=== PATIENT | female | born 1940 | race Caucasian/White ===

== ENCOUNTER 2016-12-03 07:56 | Day surgery (SDC) | payer OTHER, MEDICARE ==
[2016-12-03 08:16] LABS: MCH 31.3 pg (25.7-33.7); MCHC 33.3 g/dl (32.0-36.0); MEAN CELL VOLUME 94.2 fl (80-96); MEAN PLT VOLUME 7.3 fl (7.5-11.1); PLATELET COUNT 209 K/MM3 (134-434); RDW 14.5 % (11.6-15.6); WHITE BLOOD COUNT 6.4 K/mm3 (4.0-10.0)
[2016-12-03 08:32] VITALS: BMI 32.9
[2016-12-03 08:49] LABS: ALBUMIN 3.6 g/dl (3.4-5.0); ALK PHOS 64 U/L (45-117); ANION GAP 7 (8-16); BILIRUBIN,TOTAL 0.5 mg/dL (0.2-1.0); CALCIUM 9.2 mg/dL (8.5-10.1); CO2 30 mmol/L (21-32); CREATININE 0.8 mg/dL (0.55-1.02); GLUCOSE,RANDOM 89 mg/dL (74-106); SGOT/AST 16 U/L (15-37); SGPT/ALT 20 U/L (12-78); TOT PROT 6.9 g/dl (6.4-8.2)
[2016-12-03] MEDS ORDERED: ONDANSETRON 4 MG/2 ML VIAL IVPUSH PRN (10:53)
[2016-12-03] MEDS ORDERED: PROMETHAZINE HCL 25 MG/1 ML VIAL IVPUSH PRN (10:53)
[2016-12-03] MEDS ORDERED: oxyCODONE HCL 5 MG TABLET PO PRN (10:53)
--- NOTE | 2016-12-03 10:53 | HP ---
Past Medical History - Primary Care Physician PCP:: Víctor Marquez - Admission Chief Complaint: 76 yo female with postmenopausal bleeding History of Present Illness: Postmenopausal bleeding daily for several months. 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: No: Alzheimer's, CVA, Dementia, Migraine, Multiple Sclerosis, Peripheral Neuropathy, Parkinson's, Seizure, Syncope, TIA, Vertigo, Other Cardiovascular: Yes: HTN, Murmur (MVP) Pulmonary: No: Asthma, Bronchitis, Cancer, COPD, O2 Dependent, Pneumonia, Previously Intubated, Pulmonary Embolus, Pulmonary Fibrosis, Sleep Apnea, Other Gastrointestinal: No: Ascites, Cancer, Constipation, Crohn's Disease, Diverticulitis, Diverticulosis, Esophageal Varices, Gastritis, GERD, GI Bleed, Hemorrhoids, Hiatal Hernia, Inflamatory Bowel Disease, Irritable Bowel Disease, Pancreatitis, Peptic Ulcer Disease, Ulcerative Colitis, Other Hepatobiliary: No: Cirrhosis, Cholelithiasis, Cholecystitis, Choledocholithiasis , Hepatitis A, Hepatitis B, Hepatitis C, Other Renal/: No: Renal Failure, Renal Inusuff, BPH, Cancer, Hematuria, Hemodialysis , Neurogenic Bladder, Renal Calculi, UTI, Other Reproductive: No: Ectopic , Endometriosis, Fibroids, PID, Polycystic Ovary Syndrome, Postmenopausal, Other ...Para: 3 Heme/Onc: No: Anemia, B12 Deficiency, Bleeding Disorder, Cancer, Current Chemotherapy, Current Radiation Therapy, Hemochromatosis, Hypercoaguable State, Myeloproliferative Synd, Sickle Cell Disease, Sickle Cell Trait, Thrombocytopenia, Other Infectious Disease: No: AIDS, C-Diff, Herpes Zoster, HIV, MRSA, STD's, Tuberculosis, VREF, Other Psych: No: Addictions, Anxiety, Bipolar, Depression, Panic, Psychosis, Schizophrenia, Other Musculoskeletal: Yes: Chronic low back pain Rheumatology: No: Fibromyalgia, Gout, Lupus, Rheumatoid Arthritis, Sarcoidosis, Vasculitis, Other ENT: No: Allergic Rhinitis, Sinusitis, Other Endocrine: No: Swift's Disease, Turner's Disease, Diabetes Insipidus, Diabetes Mellitus, Hyperparathyroidism, Hyperthyroidism, Hypothyroidism, Osteopenia, SIADH, Other Dermatology: No: Basal Cell, Cellulitis, Eczema, Melanoma, Psoriasis, Squamous Cell, Other - Past Surgical History Hx Myomectomy: No Hx Transabdominal Cerclage: No - Smoking History Smoking history: Never smoked Have you smoked in the past 12 months: No Aproximately how many cigarettes per day: 0 If you are a former smoker, when did you quit?: 1989 - Alcohol/Substance Use Hx Alcohol Use: Yes (SOCIALLY) History of Substance Use: reports: None - Social History Usual Living Arrangement: Yes: With Spouse ADL: Independent Occupation: Retired History of Recent Travel: No Home Medications - Allergies Allergies/Adverse Reactions: Allergies Allergy/AdvReac Type Severity Reaction Status Date / Time minocycline HCl Allergy Mild Verified 12/03/16 10:54 [From Minocin] Shellfish Allergy Mild GI UPSET Verified 10/11/15 09:06 levofloxacin [From Levaquin] AdvReac Severe Nausea Verified 10/11/15 09:06 - Home Medications Home Medications: Ambulatory Orders Metoprolol Tartrate [Lopressor -] 75 mg PO DAILY 02/03/15 Ranitidine HCl [Zantac] 150 mg PO BID 02/03/15 Acetaminophen [Tylenol -] 500 mg PO Q6H PRN 12/03/16 Naproxen Sodium [Aleve] 220 mg PO BID PRN 12/03/16 Family Disease History - Family Disease History Family History: Denies Review of Systems - Review of Systems Constitutional: reports: No Symptoms Eyes: reports: No Symptoms HENT: reports: No Symptoms Neck: reports: No Symptoms Cardiovascular: reports: No Symptoms Respiratory: reports: No Symptoms Gastrointestinal: reports: No Symptoms Genitourinary: reports: Vaginal Bleeding Breasts: reports: No Symptoms Reported Musculoskeletal: reports: No Symptoms Integumentary: reports: No Symptoms Neurological: reports: No Symptoms Endocrine: reports: No Symptoms Hematology/Lymphatic: reports: No Symptoms Psychiatric: reports: No Symptoms Pain Intensity: 0 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 Vital Signs: Vital Signs Temperature 97.8 F 12/03/16 08:54 Pulse Rate 58 L 12/03/16 08:54 Respiratory Rate 18 12/03/16 08:54 Blood Pressure 133/51 12/03/16 08:54 O2 Sat by Pulse Oximetry (%) 98 12/03/16 08:54 Constitutional: Yes: Well Nourished, No Distress, Calm Eyes: Yes: WNL, Conjunctiva Clear HENT: Yes: WNL, Atraumatic, Normocephalic Neck: Yes: WNL, Supple, Trachea Midline Cardiovascular: Yes: WNL, Regular Rate and Rhythm Respiratory: Yes: WNL, Regular, CTA Bilaterally Gastrointestinal: Yes: WNL, Normal Bowel Sounds, Soft ...Rectal Exam: Yes: WNL Renal/: Yes: WNL Pelvis: Yes: WNL External Genitalia: Yes: Normal Internal Exam Deferred: No Vaginal Exam: Yes: Bleeding Cervix: Yes: Normal Uterus: Yes: Normal, Freely Moveable Musculoskeletal: Yes: WNL Extremities: Yes: WNL Edema: No Integumentary: Yes: WNL Neurological: Yes: WNL, Alert, Oriented ...Motor Strength: WNL Psychiatric: Yes: WNL, Alert, Oriented Labs: CBC, BMP 12/03/16 08:06 12/03/16 08:06 Assessment/Plan 76 yo P3 with postmenopausal bleeding, admitted for hysteroscopy, D&C. Risks, benefits, alternatives of suregry were discussed with the patient. Risks of infection, bleeding, perforation, scarring, pain, etc. were explained. The pt verbalized her understanding and requested to proceed.
[2016-12-03] MEDS ORDERED: LACTATED RINGERS SOLUTION 1,000 ML IV SCH (11:00)
--- NOTE | 2016-12-03 11:00 | EKG ---
Test Reason : Blood Pressure : / mmHG Vent. Rate : 056 BPM Atrial Rate : 056 BPM P-R Int : 152 ms QRS Dur : 078 ms QT Int : 424 ms P-R-T Axes : 063 057 025 degrees QTc Int : 409 ms SINUS BRADYCARDIA T WAVE ABNORMALITY, CONSIDER ANTERIOR ISCHEMIA ABNORMAL ECG WHEN COMPARED WITH ECG OF 25-OCT-2012 12:53, NO SIGNIFICANT CHANGE WAS FOUND Confirmed by DEVON SHANKS MD ([id number]) on 12/03/2016 11:00:14 AM Referred By: MOISES Confirmed By:DEVON SHANKS MD
[2016-12-03] MEDS ORDERED: SUCCINYLCHOLINE CHLORIDE 200 MG/10 ML VIAL ONE (11:05)
[2016-12-03] MEDS ORDERED: PROPOFOL 20 ML ONE (11:05)
[2016-12-03] MEDS ORDERED: IBUPROFEN 600 MG TABLET (FP) PO PRN (12:18)
[2016-12-03] MEDS ORDERED: ACETAMINOPHEN 325 MG TABLET (FP) PO PRN (12:18)
--- NOTE | 2016-12-03 12:21 | OP ---
Operative Note - Note: Operative Date: 12/03/16 Pre-Operative Diagnosis: Postmenopausal bleeding Operation: Hysteroscopy, D&C Findings: Small anteverted uterus. Multiple endometrial polyps. Post-Operative Diagnosis: Same as Pre-op Surgeon: Víctor Marquez Anesthesiologist/WEB SPECIALIST: Rehana Henderson MD Anesthesia: General Specimens Removed: Uterine polyps, endometrial curettings Estimated Blood Loss (mls): 10 Blood Volume Replaced (mls): 0 Fluid Volume Replaced (mls): 500 Operative Report Dictated: Yes
[2016-12-03 12:55] VITALS: TEMP 97.4
[2016-12-03 15:09] VITALS: BP 137/68; PULSE 55
--- NOTE | 2016-12-04 12:17 | PATH ---
Surgical Pathology Report Patient Name: ADONIS HERRERA [facility]. Rec. #: [id number] /Age/Gender: 1940 (Age: 76) / F Account: [id number] Location: [facility] SURGICAL Taken: 12/03/2016 Received: 12/03/2016 Reported: 12/04/2016 Physicians: Víctor Marquez M.D. Specimen(s) Received A: UTERINE POLYP B: ENDOMETRIAL CURETTINGS Clinical History Postmenopausal bleeding Final Diagnosis A. UTERINE POLYP, CURETTING: ENDOMETRIOID ADENOCARCINOMA, FIGO GRADE 1 OF 3. B. ENDOMETRIUM, CURETTING: ENDOMETRIOID ADENOCARCINOMA, FIGO GRADE 1 OF 3. Comment: This case was discussed with Dr. Marquez 11:30 AM on December 04, 2016. Mis-match repair protein analysis by immunohistochemistry is pending, and a report will follow. Electronically Signed Ad Son M.D. Addendum Reported: 12/05/2016 Addendum Diagnosis Immunohistochemical stains for MisMatch Repair Protein Analysis performed at [facility] in [place], [place] ([id number]) and interpreted at [facility] show the following: RESULTS: HMLH-1 LOSS OF NUCLEAR EXPRESSION HMSH-2 INTACT NUCLEAR EXPRESSION HMSH-6 INTACT NUCLEAR EXPRESSION PMS2 LOSS OF NUCLEAR EXPRESSION INTERPRETATION: Loss of nuclear expression of MLH1 and PMS2: testing for methylation of the MLH1 promoter is indicated (the presence of MLH1 methylation suggests that the tumor is sporadic and germline evaluation is probably not indicated; absence of MLH1 methylation suggests the possibility of Noriega syndrome, and sequencing and/or large deletion/duplication testing of germline MLH1 is indicated). MLH1 promoter methylation testing has been ordered, and a report will follow. Ad Son M.D. Addendum Reported: 12/19/2016 Addendum Diagnosis Molecular Pathology Report received from [facility] in [place], [place] ([id number]) shows the following: RESULTS: MLH1 Promoter Methylation: POSITIVE INTERPRETATION: MLH1 promoter methylation was detected. Comment: The presence of MLH 1 methylation suggests that the tumor is sporadic and germline evaluation for MSI is probably not indicated. Ad Son M.D. Gross Description A. Received in formalin, labeled "uterine polyp," is a 4.0 x 2.2 x 0.4 cm aggregate of babin irregular to polypoid soft tissue fragments. The formalin is filtered and the specimen is entirely submitted in one cassette. B. Received in formalin, labeled "endometrial curettings," is a 5.5 x 5.0 x 0.6 cm aggregate of babin-brown soft tissue fragments admixed with blood clot. The formalin is filtered and the specimen is entirely submitted in 5 cassettes. 12/03/201612/03/2016
--- NOTE | 2016-12-04 15:13 | OP ---
DATE OF OPERATION: 12/03/2016 PREOPERATIVE DIAGNOSIS: Postmenopausal bleeding. POSTOPERATIVE DIAGNOSIS: Postmenopausal bleeding. PROCEDURE: Hysteroscopy, polypectomy, dilation and curettage. SURGEON: Eliana De Leon MD ANESTHESIOLOGIST: Rehana Henderson MD ANESTHESIA: General. COMPLICATIONS: None. ESTIMATED BLOOD LOSS: 10 mL. IV FLUIDS: 500 mL of crystalloid. PATHOLOGY: Endometrial polyps and endometrial curettings. FINDINGS: Examination under anesthesia revealed a small anteverted uterus without pelvic or adnexal masses. Hysteroscopy revealed multiple endometrial polyps. Postoperatively, hysteroscopy revealed a normal endometrial cavity with no polyps. PROCEDURE: The patient was met preoperatively. Risks, benefits, and alternatives of surgery were discussed. All questions were answered. The patient was then brought to the OR with IV running. She was placed on the surgical table in the supine position. The general anesthesia was achieved without difficulty. The patient was then placed in a dorsal lithotomy position using adjustable Daniel stirrups. The patient was examined under anesthesia with the findings as described above. The patient was then prepped and draped in the usual sterile fashion. A weighted speculum was introduced inside the vagina, with good visualization of the cervix. The cervix was grasped with a single-tooth tenaculum and the os was dilated to accommodate a size 15 Martinez dilator. A diagnostic hysteroscope was introduced inside the uterine cavity. Multiple endometrial polyps were noted. They hysteroscope was removed. The cervical os was further dilated to accommodate size 29 Martinez dilator. Polyp forceps were then used to remove the endometrial polyps. A sharp curettage was also performed. Once the procedure was completed, a hysteroscope was introduced inside the uterine cavity. Hysteroscopy revealed a normal endometrial cavity with no further evidence of polyps. Good hemostasis was also confirmed. The hysteroscope was removed. All of the instruments were removed from the patient. Once again hemostasis was confirmed. The patient was then returned to supine position. Sponge, lap, instrument counts were correct. The patient was transferred to recovery room awake and in stable condition. ELIANA DE LEON M.D. [id number]
== END 2016-12-03 14:00 | disposition home or self-care (01) ==
LOC: JASU-SURG 07:56
PROVIDERS: ATTEND Obstetrics & Gynecology
PROC: 0UB98ZX Excision of Uterus, Via Natural or Artificial Opening Endoscopic, Diagnostic (ICD-10-PCS; principal; 2016-12-03 10:00)
PROC: 0UDB8ZX Extraction of Endometrium, Via Natural or Artificial Opening Endoscopic, Diagnostic (ICD-10-PCS; 2016-12-03 10:00)
DX: N95.0 Postmenopausal bleeding (principal); N84.0 Polyp of corpus uteri
CPT/HCPCS: 36415; 71020-TC; 80053; 85027; 86850; 86900; 86901; 88305-TC; 93005; 93010; 94760

== ENCOUNTER 2017-01-08 13:45 | Day surgery (SDC) | payer OTHER, MEDICARE ==
[2016-12-25 11:38] VITALS: BMI 32.8
[2017-01-08] MEDS ORDERED: BUPIVACAINE HCL/PF 0.5% (5MG/ML) 10 ML VIAL ONE ×2 (14:28→15:29)
[2017-01-08] MEDS ORDERED: METHYLENE BLUE 1% 10 MG/1 ML VIAL ONE (14:28)
[2017-01-08] MEDS ORDERED: MIDAZOLAM HCL 2 MG/2 ML SINGLE DOSE VIAL ONE (14:32)
[2017-01-08] MEDS ORDERED: ROCURONIUM BROMIDE 50 MG/5 ML VIAL ONE ×2 (14:32→16:50)
[2017-01-08] MEDS ORDERED: SUCCINYLCHOLINE CHLORIDE 200 MG/10 ML VIAL ONE (14:32)
[2017-01-08] MEDS ORDERED: ceFAZolin SODIUM 1 GM VIAL ONE ×2 (14:44→15:20)
--- NOTE | 2017-01-08 15:04 | HP ---
History & Physical Update - History History: No Change - Physical Physical: No Change - Assessment Assessment: No Change - Plan Plan: No Change Currently as noted:: Robotic hysterectomy, BSO, possible staging.
[2017-01-08] MEDS ORDERED: DEXAMETHASONE SOD PHOSPHATE 4 MG/1 ML VIAL ONE (15:20)
[2017-01-08] MEDS ORDERED: KETOROLAC TROMETHAMINE 30 MG/1 ML VIAL ONE (15:20)
[2017-01-08] MEDS ORDERED: LIDOCAINE HCL/PF 2% SDV 5ML VIAL ONE (15:20)
[2017-01-08] MEDS ORDERED: ceFAZolin SODIUM 1 GM VIAL IVPB ONE (15:45)
[2017-01-08] MEDS ORDERED: LIDOCAINE 1%/EPI 1:100000 (50 ML MULTI DOSE VIAL) ONE (15:53)
[2017-01-08] MEDS ORDERED: LIDOCAINE 1%/EPI 1:100000 (50 ML MULTI DOSE VIAL) INF ONE (16:08)
[2017-01-08] MEDS ORDERED: GLYCOPYRROLATE 0.2 MG/1 ML VIAL ONE (17:42)
[2017-01-08] MEDS ORDERED: NEOSTIGMINE METHYLSULFATE 0.5 MG/ML - 10 ML MDV ONE (17:42)
[2017-01-08] MEDS ORDERED: diphenhydrAMINE HCL 25 MG CAPSULE (FP) PO PRN (17:51)
[2017-01-08] MEDS ORDERED: METOCLOPRAMIDE HCL INJECTION 10 MG/2 ML VIAL IVPB PRN (17:51)
[2017-01-08] MEDS ORDERED: ACETAMINOPHEN 325 MG TABLET (FP) PO PRN (17:51)
[2017-01-08] MEDS ORDERED: PROCHLORPERAZINE INJECTION 10 MG/2 ML VIAL IVPB PRN (17:51)
[2017-01-08] MEDS ORDERED: morphine CARPU-JECT 2 MG/1 ML DISP.SYRIN IVPUSH PRN (17:51)
[2017-01-08] MEDS ORDERED: ACETAMINOPHEN 500 MG TABLET (FP) PO PRN (17:54)
--- NOTE | 2017-01-08 18:00 | OP ---
Operative Note - Note: Operative Date: 01/08/17 Pre-Operative Diagnosis: Endometrial carcinoma Operation: Robotic total hysterectomy, Bilateral salpingoophorectomy, lysis of adhesions Findings: 6 week uterus, adherent to colon posteriorly, bilateral tubes and ovaries no lesions. Extensive adhesions of colon in pelvis/cul de sac. No intraabdominal evidence of disease. Post-Operative Diagnosis: Same as Pre-op Surgeon: Rhona Coates Plate Glass Installer Helper: Anne Da Silva Anesthesia: General, Local Specimens Removed: Uterus, cervix, bilateral tubes and ovaries, peritoneal washings. Estimated Blood Loss (mls): 50 Operative Report Dictated: Yes
[2017-01-08] MEDS ORDERED: ACETAMINOPHEN 1000 MG/100 ML VIAL (NON FORMULARY) IVPB ONE (18:03)
[2017-01-08] MEDS ORDERED: ONDANSETRON 4 MG/2 ML VIAL IVPUSH PRN (18:03)
[2017-01-08] MEDS ORDERED: ACETAMINOPHEN INJECTION 100 ML IVPB ONE (18:05)
[2017-01-08] MEDS ORDERED: HYDROmorphone HCL CARPU-JECT 2 MG/1 ML DISP.SYRIN ONE (18:05)
[2017-01-08] MEDS: HYDROmorphone HCL CARPU-JECT 1 MG/1 ML DISP.SYRIN IVPUSH PRN ×4 (18:05→18:25)
[2017-01-08] MEDS ORDERED: ONDANSETRON 4 MG/2 ML VIAL ONE (19:39)
[2017-01-08] MEDS: LACTATED RINGERS SOLUTION 1,000 ML IV SCH (19:55)
[2017-01-08] MEDS: RANITIDINE HCL 150 MG TABLET (FP) PO SCH (22:26)
[2017-01-09] MEDS: KETOROLAC TROMETHAMINE 15 MG/ML VIAL IVPUSH SCH ×4 (06:00→12:36)
[2017-01-09] MEDS: LACTATED RINGERS SOLUTION 1,000 ML IV SCH (06:32)
[2017-01-09 08:25] LABS: MCH 30.4 pg (25.7-33.7); MCHC 32.9 g/dl (32.0-36.0); MEAN CELL VOLUME 92.5 fl (80-96); MEAN PLT VOLUME 7.9 fl (7.5-11.1); PLATELET COUNT 157 K/MM3 (134-434); RDW 13.8 % (11.6-15.6); WHITE BLOOD COUNT 7.8 K/mm3 (4.0-10.0)
[2017-01-09 08:54] LABS: CALCIUM 8.2 mg/dL (8.5-10.1)
[2017-01-09 08:55] LABS: CREATININE 0.8 mg/dL (0.55-1.02)
[2017-01-09] MEDS: RANITIDINE HCL 150 MG TABLET (FP) PO SCH (09:52)
--- NOTE | 2017-01-09 11:45 | PN ---
Progress Note (short form) - Note Progress Note: Anesthesia postop note 76 y/o F s/p GA for Robotic Hysterectomy POD#1, vss, aaox3 No anesthesia complications.
--- NOTE | 2017-01-09 13:38 | OP ---
DATE OF OPERATION: 01/08/2017 PREOPERATIVE DIAGNOSIS: Endometrial carcinoma. POSTOPERATIVE DIAGNOSIS: Endometrial carcinoma. PROCEDURE: Robotic-assisted total hysterectomy, bilateral salpingo-oophorectomy, and lysis of adhesions. SURGEON: Rhona Coates MD MATERIAL CONTROL CLERK: Anne Da Silva MD ANESTHESIA: General endotracheal and local. ESTIMATED BLOOD LOSS: 50 mL. COMPLICATIONS: None. INDICATIONS: This is a 76-year-old with history of postmenopausal vaginal bleeding. A D&C showed a FIGO grade 1 endometrioid adenocarcinoma. The patient was counseled regarding surgical management. Risks, benefits, indications, alternatives were discussed with patient. All questions were answered. Informed consent was signed. FINDINGS: The cervix with no lesions, vagina with no lesions. Intraabdominally, the uterus was 6 weeks size. Bilateral tubal ligation, no lesions. The colon was adherent posteriorly in the cul-de-sac with extensive adhesions. The sigmoid colon was adherent to the posterior uterus. Upper abdominal exam appeared normal. The diaphragm and liver appeared smooth. There was no intraabdominal evidence of disease. PROCEDURE: The patient was taken to the operating room, placed in the dorsal supine position. General endotracheal anesthesia was obtained without difficulty. She was then placed in the dorsal lithotomy position in Daniel stirrups and prepped and draped in the normal sterile fashion. A Camp catheter was placed in the bladder. A speculum was placed in the vagina. The cervix was grasped with a single-tooth tenaculum and gently dilated. A VCare uterine manipulator was placed and affixed to the cervix using a 0 Vicryl stitch. The tenaculum and speculum were then removed. Attention was turned to the patient's abdomen. Then 5 mL of 1% lidocaine with epinephrine was injected into the umbilicus. An 8-mm incision was made with a scalpel, while tenting the anterior abdominal wall. The Veress needle was inserted intraabdominally. The abdomen was insufflated with CO2 gas. An 8-mm trocar was then placed and intraabdominal placement was confirmed by direct visualization with a laparoscope. Extensive adhesiolysis was performed in order to visualize the posterior uterus as well as the left adnexa as the sigmoid colon was adherent in the left pelvic sidewall. The left adnexa was elevated. The left ureter was noted to be well away from the field of dissection. The left infundibulopelvic ligament was clamped, cauterized and transected. This was carried through the broad ligament and the round ligament on the left and the vesicouterine peritoneum anteriorly. The right ovary was elevated. There were some adhesions of the cecum to the right pelvic sidewall. These were freed. The right retroperitoneum was opened and the right ureter was identified. The right infundibulopelvic ligament was clamped, cauterized and transected. This was carried through the broad ligament and the round ligament on the right and the vesicouterine peritoneum anteriorly. The bladder was dissected off the anterior cervix and upper vagina. Uterine arteries bilaterally were skeletonized. They were clamped, cauterized and transected. The cardinal ligaments were serially clamped, cauterized and transected. The uterosacral ligaments were clamped, cauterized and transected. A vaginotomy incision was made circumferentially around the cervix, and the uterus, cervix, ovaries and tubes were passed through the vagina. The vaginal cuff was closed in a running continuous fashion using 2-0 V-Loc suture. The uterus had been sent for pathology and it returned grade 1 endometrial adenocarcinoma and a polyp with no evidence of myometrial invasion. Pelvis was thoroughly irrigated with sterile water. Excellent hemostasis was seen. Surgicel was placed on the cuff for added assurance. All instruments were removed from the patient's abdomen. The da Lakisha robot was then undocked. Again we visualized the pelvis and it was noted to be hemostatic. All trocars were removed. Skin was closed with 4-0 Monocryl and Dermabond was applied. The vagina was irrigated with sterile water and Betadine solution. The patient was then extubated and transferred in stable condition to the PACU. Sponge, needle, instrument counts were correct x2. Marques [id number]
[2017-01-09 13:45] VITALS: PULSE 50
--- NOTE | 2017-01-09 14:29 | PN ---
Progress Note, Physician Chief Complaint: 76 yo with Endometrial CA, s/p Robotic TLH tolarating reg diet, has not voided - Current Medication List Current Medications: Active Medications Acetaminophen (Tylenol -) 650 mg PO Q4H PRN PRN Reason: FEVER OR PAIN Acetaminophen (Tylenol -) 500 mg PO Q6H PRN PRN Reason: BACK PAIN Diphenhydramine HCl (Benadryl -) 25 mg PO Q6H PRN PRN Reason: FOR ITCHING Diphenhydramine HCl (Benadryl Injection -) 25 mg IVPB Q6H PRN PRN Reason: FOR ITCHING Lactated Ringer's (Lactated Ringers Solution) 1,000 mls @ 75 mls/hr IV ASDIR [facility] Last Admin: 01/09/17 06:32 Dose: 75 mls/hr Ketorolac Tromethamine (Toradol Injection -) 15 mg IVPUSH Q6H [facility] Stop: 01/13/17 17:59 Last Admin: 01/09/17 12:36 Dose: 15 mg Metoclopramide HCl (Reglan Injection -) 10 mg IVPB Q6H PRN PRN Reason: NAUSEA AND/OR VOMITING Morphine Sulfate (Morphine Injection -) 1 mg IVPUSH Q3H PRN PRN Reason: PAIN Prochlorperazine Edisylate (Compazine Injection -) 25 mg IVPB Q6H PRN PRN Reason: NAUSEA AND/OR VOMITING Ranitidine HCl (Zantac -) 150 mg PO BID [facility] Last Admin: 01/09/17 09:52 Dose: 150 mg - Objective Vital Signs: Vital Signs Temperature 97.9 F 01/09/17 13:43 Pulse Rate 50 L 01/09/17 13:43 Respiratory Rate 17 01/09/17 13:43 Blood Pressure 112/53 01/09/17 08:00 O2 Sat by Pulse Oximetry (%) 100 01/09/17 09:00 Constitutional: Yes: Well Nourished Neck: Yes: WNL Cardiovascular: Yes: WNL Respiratory: Yes: WNL, CTA Bilaterally Gastrointestinal: Yes: WNL, Normal Bowel Sounds Musculoskeletal: Yes: WNL Extremities: Yes: WNL Edema: No Wound/Incision: Yes: Clean/Dry, Well Approximated Neurological: Yes: WNL ...Motor Strength: WNL Labs: CBC, BMP 01/09/17 07:45 01/09/17 07:45 Assessment/Plan 76 yo P3 POD#1 s/p Robotic TH/BSO/MAE VSS, Afibrile, H/H stable, tolarating PO will d/c home once voids and ambulates Follow with in 2 weeks
[2017-01-09 18:12] VITALS: BP 150/73; TEMP 98.8
--- NOTE | 2017-01-10 13:25 | PATH ---
Surgical Pathology Report Patient Name: ADONIS HERRERA [facility] Rec. #: [id number] /Age/Gender: 1940 (Age: 76) / F Account: [id number] Location: [facility] SURGICAL Taken: 01/08/2017 Received: 01/08/2017 Reported: 01/10/2017 Physicians: Jaxon Melgoza MD Dmitry Gerber, M.D. Specimen(s) Received UTERUS, CERVIX, BILATERAL FALLOPIAN TUBES AND OVARIES Clinical History Endometrial cancer Assessment depth of invasion and grade Intraoperative Consult Diagnosis Uterus, frozen section: Endometrial adenocarcinoma, FIGO grade 1 of 3, limited to the endometrium. No myometrial invasion identified grossly or on access representative frozen section. Dr. Son Final Diagnosis UTERUS AND CERVIX WITH BILATERAL FALLOPIAN TUBES AND OVARIES, HYSTERECTOMY AND BILATERAL SALPINGO-OOPHORECTOMY: ENDOMETRIOID ADENOCARCINOMA OF UTERUS, FIGO GRADE 1 OF 3, LIMITED TO THE ANTERIOR ENDOMETRIUM, MEASURING 1.7 CM IN GREATEST DIMENSION. NO LYMPH-VASCULAR INVASION IDENTIFIED. NO MYOMETRIAL INVASION OR INVOLVEMENT OF CERVIX IDENTIFIED. NO PARAMETRIAL INVOLVEMENT IDENTIFIED. BENIGN BILATERAL FALLOPIAN TUBES AND OVARIES WITH NO INVOLVEMENT BY CARCINOMA IDENTIFIED. Comment: Also see [id number] and [id number]. Comments Endometrial Carcinoma: Surgical Pathology Cancer Case Summary (Checklist) Based on AJCC/UICC TNM, 7th edition and FIGO 2008 Annual Report Specimen _X__ Uterine corpus _X__ Cervix _X__ Right ovary _X__ Left ovary _X__ Right fallopian tube _X__ Left fallopian tube _X__ Left parametrium _X__ Right parametrium Lymph Node Sampling _X__ Not performed Specimen Integrity _X__ Intact hysterectomy specimen Tumor Size Greatest dimension: 1.7 cm Histologic Type: ENDOMETRIOID Histologic Grade International Federation of Gynecology and Obstetrics (FIGO) Grading System (applies to endometrioid and mucinous adenocarcinomas only): _X__ FIGO grade 1 Myometrial Invasion _X__ Not identified Involvement of Cervix _X__ Not involved Extent of Involvement of Other Organs _X__ Right ovary _X__ Not involved _X__ Left ovary _X__ Not involved _X__ Right fallopian tube _X__ Not involved _X__ Left fallopian tube _X__ Not involved Lymph-Vascular Invasion _X__ Not identified Pathologic Staging (pTNM [FIGO]) Primary Tumor: pT1a Regional Lymph Nodes: pN0 Distant Metastasis: pMX Electronically Signed Ad Son M.D. Gross Description Received fresh for frozen section labeled "uterus, cervix, bilateral tubes and ovaries for frozen section" is a 59 gram uterus measuring 6.7 x 5.1 x 3.2 cm. The uterine serosa is smooth and glistening. The cervix measures 3.2 cm in diameter with a 0.6 cm os. The uterus is opened and reveals a 2.4 cm long endocervical canal lined by babin mucosa. The endometrial cavity measures 3.0 x 2.0 cm. Along the anterior endometrial wall there is a 1.7 x 1.5 x 0.3 cm polypoid mass. Cut surface through the uterus reveals a 2.0 cm thick myometrium. Grossly the mass does not extend into the myometrium. No myometrial masses are identified. A access representative section of the mass and underlying myometrium is frozen and the frozen remainder is submitted in cassette A1. The attached right fallopian tube is 4.8 cm long x 0.5 cm in diameter and contains a fimbriated end. The attached right ovary measures 1.8 x 1.0 x 0.8 cm, and has a babin surface and uniform babin interior. No focal lesions are identified. The attached left fallopian tube measures 5.5 cm long by average 0.5 cm in diameter and contains a fimbriated end. The left ovary measures 2.3 x 1.2 x 0.8 cm and has a smooth babin surface and a uniform babin interior. Gravedigger sections are submitted as follows: 1-frozen remainder; 2 and 3-additional anterior endomyometrium; 4 through 6-posterior endomyometrium; 7 and 8-anterior cervix and lower uterine segment; 9 and 10-posterior cervix and lower uterine segment; 11 -right parametrium; 12-left parametrium; 13 and 14-right fallopian tube and ovary 15 and 16-left fallopian tube and ovary. [facility]/01/08/2017 the medical center/01/08/2017
--- NOTE | 2017-01-10 14:51 | PATH ---
Cytology Non-Gynecological Report Patient Name: ADONIS HERRERA Med. Rec. #: [id number] /Age/Gender: 1940 (Age: 76) / F Account: [id number] Location: [facility] SURGICAL Taken: 01/08/2017 Received: 01/09/2017 Reported: 01/10/2017 Physicians: Jaxon Melgoza MD Specimen(s) Received PELVIC WASHINGS Clinical History Endometrial cancer Final Diagnosis PELVIC WASHINGS: SATISFACTORY FOR EVALUATION. NO MALIGNANT CELLS IDENTIFIED. MESOTHELIAL CELLS, HISTIOCYTES AND INFLAMMATORY CELLS. Comment: Refer to [id number] for the surgical pathology results. Electronically Signed Corey Villanueva M.D. Gross Description Received is 30 cc of clear fluid fresh. One cytofunnel slide is made.
== END 2017-01-09 18:58 | disposition home or self-care (01) ==
LOC: JASU-SURG 13:45 → J6S 20:45 → JASU-SURG 01-09 18:58
PROVIDERS: ATTEND Obstetrics & Gynecology Gynecologic Oncology
PROC: 0UT2FZZ Resection of Bilateral Ovaries, Via Natural or Artificial Opening With Percutaneous Endoscopic Assistance (ICD-10-PCS; 2017-01-08)
PROC: 0UT7FZZ Resection of Bilateral Fallopian Tubes, Via Natural or Artificial Opening With Percutaneous Endoscopic Assistance (ICD-10-PCS; 2017-01-08)
PROC: 8E0W4CZ Robotic Assisted Procedure of Trunk Region, Percutaneous Endoscopic Approach (ICD-10-PCS; 2017-01-08)
PROC: 0UT9FZZ Resection of Uterus, Via Natural or Artificial Opening With Percutaneous Endoscopic Assistance (ICD-10-PCS; principal; 2017-01-08 15:00)
PROC: 0UTC7ZZ Resection of Cervix, Via Natural or Artificial Opening (ICD-10-PCS; 2017-01-08 15:00)
DX: C54.1 Malignant neoplasm of endometrium (principal)
CPT/HCPCS: 58552; S2900; 36415; 80048; 85027; 86850; 86900; 86901; 88108; 88305-TC; 88309-TC; 88331-TC; 94010; 94760

== ENCOUNTER 2017-03-31 12:34 | Inpatient (IN) | payer OTHER, MEDICARE ==
[2017-03-31 12:47] VITALS: BMI 31.6
--- NOTE | 2017-03-31 13:06 | PDOC ---
History of Present Illness - General History Source: Patient Exam Limitations: No Limitations - History of Present Illness Initial Comments: 03/31/17 13:19 The patient is a 76-year-old woman, accompanied by her son, with a significant past medical history of gatsroesophageal reflux disease, urinary tract infections and mitral valve prolapse who presents to the emergency department via walk-in for further evaluation of left lower knee pain/swelling for the past 3 days. No trauma. Patient states that she woke up approximately 3 days ago and experienced pain on her left knee. She was seen in [facility], yesterday , for which an x-ray was performed and was negative for any acute pathology. She was discharged on pain medications and was referred to her Orthopedist, Dr. Brandon Lindsey. Patient states that since discharged, her knee pain has worsened as she was initially able to bear weight on it but now she can barley walk. She called her PMD, Dr. Jose Sanon, who suggests we admit the patient for observation and for a left knee MRI. No numbness, weakness, tinging sensations to her extremities. No fever, chills, cough, chest pain, lightheadedness, dizziness, palpitations, visual changes, neck pain, back pain, headaches No nausea, vomiting, diarrhea. Allergies: Seasonal. Minocycline. Levofloxacin. Shellfish. Past Surgical History: Appendectomy. Right Rotator cuff repair. Mitral valve prolapse. Social History: Former smoker. No EtOH and recreational drug use. Primary Care Physical: Dr. Jose Sanon <Irene Mckeon - Last Filed: 03/31/17 14:33> <Hollis Zambrano - Last Filed: 03/31/17 14:49> - General Chief Complaint: Pain Stated Complaint: KNEE PAIN Time Seen by Provider: 03/31/17 13:06 Past History <Irene Mckeon - Last Filed: 03/31/17 14:33> - Past Medical History Anemia: No Asthma: Yes (SEASONAL, MAYBE A COUPLE OF TIMES A YEAR) Cancer: No Cardiac Disorders: Yes (MITRAL VALVE PROLAPSE) CVA: No COPD: No CHF: No Dementia: No Diabetes: No GI Disorders: Yes (GERD) Disorders: Yes (HX UTI) HTN: No Hypercholesterolemia: No Liver Disease: No Seizures: No Thyroid Disease: No - Surgical History Abdominal Surgery: Yes Appendectomy: Yes (1961) Cardiac Surgery: No Cholecystectomy: No Lung Surgery: No Neurologic Surgery: No Orthopedic Surgery: Yes (RIGHT ROATATOR CUFF REPAIR-1993) - Psycho/Social/Smoking Cessation Hx Anxiety: No Suicidal Ideation: No Smoking Status: Yes Smoking History: Former smoker Have you smoked in the past 12 months: No Number of Cigarettes Smoked Daily: 0 If you are a former smoker, when did you quit?: 1989 Information on smoking cessation initiated: No Hx Alcohol Use: No Drug/Substance Use Hx: No Substance Use Type: None Hx Substance Use Treatment: No <Hollis Zambrano - Last Filed: 03/31/17 14:49> - Past Medical History Allergies/Adverse Reactions: Allergies Allergy/AdvReac Type Severity Reaction Status Date / Time minocycline HCl Allergy Mild Verified 03/31/17 12:42 [From Minocin] Shellfish Allergy Mild GI UPSET Verified 03/31/17 12:42 levofloxacin [From Levaquin] AdvReac Severe Nausea Verified 03/31/17 12:42 Home Medications: Ambulatory Orders Metoprolol Tartrate [Lopressor -] 75 mg PO HS 02/03/15 Ranitidine HCl [Zantac] 150 mg PO BID 02/03/15 Review of Systems - Review of Systems Able to Perform ROS?: Yes Comments:: 03/31/17 13:26 GENERAL/CONSTITUTIONAL: No fever or chills. No weakness. HEAD, EYES, EARS, NOSE AND THROAT: No change in vision. No ear pain or discharge. No sore throat. CARDIOVASCULAR: No chest pain or shortness of breath. RESPIRATORY: No cough, wheezing, or hemoptysis. GASTROINTESTINAL: No nausea, vomiting, diarrhea or constipation. GENITOURINARY: No dysuria, frequency, or change in urination. MUSCULOSKELETAL: Yes: Left knee pain. No neck or back pain. SKIN: No rash NEUROLOGIC: No headache, vertigo, loss of consciousness, or change in strength/ sensation. ENDOCRINE: No increased thirst. No abnormal weight change. HEMATOLOGIC/LYMPHATIC: No anemia, easy bleeding, or history of blood clots. ALLERGIC/IMMUNOLOGIC: No hives or skin allergy. <Irene Mckeon - Last Filed: 03/31/17 14:33> *Physical Exam - Vital Signs Last Vital Signs Temp Pulse Resp BP Pulse Ox 97.9 F 61 18 123/81 100 03/31/17 12:39 03/31/17 12:39 03/31/17 12:39 03/31/17 12:39 03/31/17 12:39 - Physical Exam Comments: 03/31/17 13:31 GENERAL: Awake, alert, and fully oriented, in no acute distress HEAD: No signs of trauma EYES: PERRLA, EOMI, sclera anicteric, conjunctiva clear ENT: Auricles normal inspection, hearing grossly normal, nares patent, oropharynx clear without exudates. Moist mucosa NECK: Normal ROM, supple, no lymphadenopathy, JVD, or masses LUNGS: Breath sounds equal, clear to auscultation bilaterally. No wheezes, and no crackles HEART: Regular rate and rhythm, normal S1 and S2, no murmurs, rubs or gallops ABDOMEN: Soft, nontender, normoactive bowel sounds. No guarding, no rebound. No masses MUSCULOSKELETAL: Large effusion to the left knee anteriorly, no clinical evidence of DVT. Neurovascularly intact EXTREMITIES: Normal range of motion, no edema. No clubbing or cyanosis. No cords, erythema. NEUROLOGICAL: Cranial nerves II through XII grossly intact. Normal speech. <Irene Mckeon - Last Filed: 03/31/17 14:33> - Vital Signs Last Vital Signs Temp Pulse Resp BP Pulse Ox 97.9 F 61 18 123/81 100 03/31/17 12:39 03/31/17 12:39 03/31/17 12:39 03/31/17 12:39 03/31/17 12:39 <Hollis Zambrano - Last Filed: 03/31/17 14:49> Heart Score/ECG Review #1 ECG reviewed & interpreted by me at: 13:45 03/31/17 13:45 Reviewed and interpreted by Dr. Hollis Zambrano IMPRESSION: Sinus bradycardia with a rate of 53 bpm. Normal intervals. Normal axis. <Irene Mckeon - Last Filed: 03/31/17 14:33> ED Treatment Course - LABORATORY CBC & Chemistry Diagram: 03/31/17 13:42 03/31/17 13:42 - RADIOLOGY Radiograph Interpretation: 03/31/17 14:32 EXAM: RAD/CHEST X-RAY PORTABLE Interpreted by Dr. Kalpesh Gutierrez IMPRESSION: Since 12/03/2016, there is slight rotation to the right. There is a prominent mediastinum, clear lungs and prior right shoulder surgery. <Irene Mckeon - Last Filed: 03/31/17 14:33> - LABORATORY CBC & Chemistry Diagram: 03/31/17 13:42 03/31/17 13:42 <Hollis Zambrano - Last Filed: 03/31/17 14:49> Medical Decision Making - Medical Decision Making 03/31/17 13:31 The patient is a 76-year-old woman, accompanied by her son, with a significant past medical history of gatsroesophageal reflux disease, urinary tract infections and mitral valve prolapse who presents to the emergency department via walk-in for further evaluation of left lower knee pain/swelling for the past 3 days. Physical examination reveals a large effusion to the left knee anteriorly, no clinical evidence of DVT. Neurovascualrly intact Will obtain Chest X-ray, EKG, CBC and CMP. Will reassess and admit. 03/31/17 14:[address] Jose Sanon <Irene Mckeon - Last Filed: 03/31/17 14:33> *DC/Admit/Observation/Transfer - Attestations Scribe Attestion: 03/31/17 13:32 Documentation prepared by Irene Mckeon, acting as registered medical assistant for Hollis Zambrano DO. <Irene Mckeon - Last Filed: 03/31/17 14:33> - Discharge Dispostion Admit: Yes - Attestations Physician Attestion: 03/31/17 13:06 I, Dr. Hollis Zambrano, attest that this document has been prepared under my direction and personally reviewed by me in its entirety. I further attest, that it accurately reflects all work, treatment, procedures and medical decision -making performed by me. <Hollis Zambrano - Last Filed: 03/31/17 14:49> Diagnosis at time of Disposition: Joint effusion of knee, Inability to ambulate due to knee Knee pain, acute Qualifiers: Laterality: right Qualified Code(s): M25.561 - Pain in right knee - Discharge Dispostion Condition at time of disposition: Unchanged/Unknown - Referrals Referrals: Jose Sanon MD [Primary Care Provider] -
[2017-03-31] MEDS ORDERED: ONDANSETRON *ODT* 4 MG TABLET SL ONE (13:21)
[2017-03-31] MEDS ORDERED: OXYCODONE/APAP 5/325MG COMBO TABLET PO ONE (13:21)
[2017-03-31] MEDS ORDERED: ONDANSETRON *ODT* 4 MG TABLET ONE (13:36)
[2017-03-31] MEDS ORDERED: OXYCODONE/APAP 5/325MG COMBO TABLET ONE (13:36)
[2017-03-31 14:15] LABS: BASOPHIL 0.5 % (0-2.0); EOSINOPHIL 1.6 % (0-4.5); MCH 30.3 pg (25.7-33.7); MEAN CELL VOLUME 91.9 fl (80-96); MEAN PLT VOLUME 7.4 fl (7.5-11.1); NEUTROPHILS 74.3 % (42.8-82.8); PLATELET COUNT 209 K/MM3 (134-434); RDW 14.9 % (11.6-15.6); WHITE BLOOD COUNT 8.4 K/mm3 (4.0-10.0)
[2017-03-31 14:18] LABS: URINE APPEARANCE CLEAR; URINE BILIRUBIN NEGATIVE (NEGATIVE); URINE BLOOD NEGATIVE (NEGATIVE); URINE COLOR STRAW; URINE GLUCOSE (UA) NEGATIVE (NEGATIVE); URINE KETONE NEGATIVE (NEGATIVE); URINE LEUK ESTERASE NEGATIVE (NEGATIVE); URINE NITRITE NEGATIVE (NEGATIVE); URINE PROTEIN NEGATIVE (NEGATIVE); URINE UROBILINOGEN NEGATIVE E.U./dl (0.2-1.0)
[2017-03-31 14:41] LABS: ALBUMIN 3.5 g/dl (3.4-5.0); ANION GAP 10 (8-16); BILIRUBIN,TOTAL 0.4 mg/dL (0.2-1.0); CALCIUM 8.9 mg/dL (8.5-10.1); CO2 27 mmol/L (21-32); COCKROFT - GAULT 76.3555; CREATININE 0.8 mg/dL (0.55-1.02); GLUCOSE,RANDOM 93 mg/dL (74-106); SGOT/AST 18 U/L (15-37); SGPT/ALT 24 U/L (12-78); TOT PROT 7.1 g/dl (6.4-8.2)
[2017-03-31 14:42] LABS: ALK PHOS 63 U/L (45-117); INR 1.08 (0.82-1.09); PROTHROMBIN TIME (PATIENT) 11.9 SEC (9.98-11.88)
[2017-03-31] MEDS ORDERED: IBUPROFEN 600 MG TABLET (FP) PO PRN (14:49)
[2017-03-31] MEDS: oxyCODONE HCL 5 MG TABLET PO PRN (18:31)
--- NOTE | 2017-03-31 21:16 | HP ---
Admitting History and Physical - Admission Chief Complaint: left knee pain, unable to stand History of Present Illness: 76 yo female, tripped on steps and hit her left knee. Immediately had pain, but was able to walk. Knee started to feel worse, so called ambulance and taken to ED yesterday. Was evaluated in [facility] and discharged home after xray showed no fracture. However, this morning patient noted pain intensified, now not able to walk on it, so came back to ED. Swelling noted in knee. No fevers. - Past Medical History Cardiovascular: Yes: HTN, Murmur (MVP) Reproductive: Yes: Other (endometrial cancer) Musculoskeletal: Yes: Chronic low back pain - Past Surgical History Past Surgical History: Yes: Hysterectomy - Smoking History Smoking history: Former smoker Have you smoked in the past 12 months: No Aproximately how many cigarettes per day: 0 If you are a former smoker, when did you quit?: 1989 - Alcohol/Substance Use Hx Alcohol Use: No History of Substance Use: reports: None - Social History ADL: Independent Occupation: Retired History of Recent Travel: No Home Medications - Allergies Allergies/Adverse Reactions: Allergies Allergy/AdvReac Type Severity Reaction Status Date / Time minocycline HCl Allergy Mild Verified 03/31/17 12:42 [From Minocin] Shellfish Allergy Mild GI UPSET Verified 03/31/17 12:42 levofloxacin [From Levaquin] AdvReac Severe Nausea Verified 03/31/17 12:42 - Home Medications Home Medications: Ambulatory Orders Metoprolol Tartrate [Lopressor -] 75 mg PO HS 02/03/15 Ranitidine HCl [Zantac] 150 mg PO BID 02/03/15 Methenamine Hippurate [Hiprex [Nf] -] PO PRN 03/31/17 Family Disease History - Family Disease History Family History: Unremarkable Review of Systems - Review of Systems Constitutional: denies: Chills, Fever, Loss of Appetite Eyes: reports: No Symptoms HENT: denies: Epistaxis, Throat Pain Neck: denies: Decreased ROM, Stiffness, Tenderness Cardiovascular: denies: Chest Pain, Palpitations Respiratory: denies: Cough, SOB, Wheezing Gastrointestinal: denies: Abdominal Pain, Constipation, Melena, Nausea, Vomiting Genitourinary: denies: Burning, Discharge, Dysuria Neurological: denies: Confusion Physical Examination Vital Signs: Vital Signs Temperature 97.6 F 03/31/17 18:54 Pulse Rate 57 L 03/31/17 18:54 Respiratory Rate 18 03/31/17 16:00 Blood Pressure 119/63 03/31/17 18:54 O2 Sat by Pulse Oximetry (%) 98 03/31/17 16:00 Constitutional: Yes: No Distress, Calm Eyes: Yes: Conjunctiva Clear, EOM Intact, PERRL HENT: Yes: Atraumatic, Normocephalic Neck: Yes: Supple, Trachea Midline Cardiovascular: Yes: Bradycardia, S1, S2. No: Murmur Respiratory: Yes: Regular, CTA Bilaterally. No: Rales, Rhonchi, Wheezes Gastrointestinal: Yes: Normal Bowel Sounds, Soft, Abdomen, Obese. No: Distention, Tenderness Musculoskeletal: Yes: Joint Swelling (left knee), Other (OA changes b/l knees) Edema: Yes Edema: LLE: Trace, RLE: Trace Neurological: Yes: Alert, Oriented Labs: Laboratory Tests 03/31/17 03/31/17 03/31/17 13:42 13:42 13:42 WBC 8.4 RBC 4.39 D Hgb 13.3 D Hct 40.4 D MCV 91.9 MCHC 33.0 RDW 14.9 Plt Count 209 D MPV 7.4 L Neutrophils % 74.3 Lymphocytes % 16.8 Monocytes % 6.8 Eosinophils % 1.6 Basophils % 0.5 INR 1.08 Sodium Potassium Chloride Carbon Dioxide Anion Gap BUN Creatinine Creat Clearance w eGFR Random Glucose Calcium Total Bilirubin AST ALT Alkaline Phosphatase Total Protein Albumin Urine Color Straw Urine Appearance Clear Urine pH 7.0 Ur Specific Delong 1.015 Urine Protein Negative Urine Glucose (UA) Negative Urine Ketones Negative Urine Blood Negative Urine Nitrite Negative Urine Bilirubin Negative Urine Urobilinogen Negative Ur Leukocyte Esterase Negative 03/31/17 13:42 WBC RBC Hgb Hct MCV MCHC RDW Plt Count MPV Neutrophils % Lymphocytes % Monocytes % Eosinophils % Basophils % INR Sodium 143 Potassium 4.5 Chloride 106 Carbon Dioxide 27 Anion Gap 10 BUN 19 H Creatinine 0.8 Creat Clearance w eGFR > 60 Random Glucose 93 Calcium 8.9 Total Bilirubin 0.4 D AST 18 ALT 24 Alkaline Phosphatase 63 Total Protein 7.1 Albumin 3.5 Urine Color Urine Appearance Urine pH Ur Specific Delong Urine Protein Urine Glucose (UA) Urine Ketones Urine Blood Urine Nitrite Urine Bilirubin Urine Urobilinogen Ur Leukocyte Esterase Imaging - Results X-ray: Report Reviewed (xray (03/30) of knee -soft tissue swelling, no fracture) Problem List - Problems (1) Inability to ambulate due to knee Assessment/Plan: -ortho eval -check MRI r/o occult fracture -may need STR if unable to ambulate Code(s): R26.2 - DIFFICULTY IN WALKING, NOT ELSEWHERE CLASSIFIED (2) Joint effusion of knee Assessment/Plan: -ortho eval -cool compresses Code(s): M25.469 - EFFUSION, UNSPECIFIED KNEE (3) Knee pain, acute Assessment/Plan: -due to contusion? v other injury -to check MRI -oxycodone prn Code(s): M25.569 - PAIN IN UNSPECIFIED KNEE Qualifiers: Laterality: right Qualified Code(s): M25.561 - Pain in right knee (4) Back pain Assessment/Plan: -chronic -oxycodone prn Code(s): M54.9 - DORSALGIA, UNSPECIFIED (5) Hypertension Assessment/Plan: -cont antihypertensive Code(s): I10 - ESSENTIAL (PRIMARY) HYPERTENSION
[2017-03-31] MEDS: METHENAMINE PO SCH (21:19)
[2017-03-31] MEDS: METOPROLOL TARTRATE 50 MG TABLET (FP) PO SCH (21:20)
[2017-03-31] MEDS: RANITIDINE HCL 150 MG TABLET (FP) PO SCH (21:21)
[2017-04-01] MEDS: RANITIDINE HCL 150 MG TABLET (FP) PO SCH ×2 (10:16→22:14)
[2017-04-01] MEDS: METHENAMINE PO SCH (10:16)
--- NOTE | 2017-04-01 10:28 | EKG ---
Test Reason : Blood Pressure : / mmHG Vent. Rate : 053 BPM Atrial Rate : 053 BPM P-R Int : 146 ms QRS Dur : 078 ms QT Int : 440 ms P-R-T Axes : 062 048 018 degrees QTc Int : 412 ms SINUS BRADYCARDIA T WAVE ABNORMALITY, CONSIDER ANTERIOR ISCHEMIA ABNORMAL ECG WHEN COMPARED WITH ECG OF 03-DEC-2016 08:19, NO SIGNIFICANT CHANGE WAS FOUND Confirmed by MD JANNA, BENJAMIN ([id number]) on 04/01/2017 10:28:17 AM Referred By: Confirmed By:BENJAMIN SALDIVAR MD
--- NOTE | 2017-04-01 11:40 | PN ---
Progress Note, Physician Chief Complaint: Ms Sanders complains of knee pain when trying to stand or walk. No cp, sob, n/v. - Current Medication List Current Medications: Active Medications Ibuprofen (Motrin -) 600 mg PO Q6H PRN PRN Reason: FEVER Metoprolol Tartrate (Lopressor -) 75 mg PO HS [facility] Last Admin: 03/31/17 21:20 Dose: 75 mg Non-Formulary Medication (Methenamine) 1 grams PO DAILY [facility] Last Admin: 04/01/17 10:16 Dose: 1 grams Oxycodone HCl (Roxicodone -) 5 mg PO Q4H PRN PRN Reason: PAIN Last Admin: 03/31/17 18:31 Dose: 5 mg Ranitidine HCl (Zantac -) 150 mg PO BID [facility] Last Admin: 04/01/17 10:16 Dose: 150 mg - Objective Vital Signs: Vital Signs Temperature 98.0 F 04/01/17 06:00 Pulse Rate 59 L 04/01/17 06:00 Respiratory Rate 18 04/01/17 06:00 Blood Pressure 138/53 04/01/17 06:00 O2 Sat by Pulse Oximetry (%) 98 03/31/17 21:00 Constitutional: Yes: Well Nourished, No Distress, Calm Cardiovascular: Yes: Regular Rate and Rhythm. No: Gallop, Murmur, Rub Respiratory: Yes: Regular, CTA Bilaterally. No: Rales, Rhonchi, Wheezes Gastrointestinal: Yes: Normal Bowel Sounds, Soft. No: Distention, Tenderness Extremities: Yes: WNL Edema: No Labs: INR, PTT INR 1.08 (0.82-1.09) 03/31/17 13:42 Problem List - Problems (1) Knee pain, acute Assessment/Plan: -ortho consulted -MRI ordered -PT consult -pain control -if unable to ambulate, may need SNF placement Code(s): M25.569 - PAIN IN UNSPECIFIED KNEE Qualifiers: Laterality: right Qualified Code(s): M25.561 - Pain in right knee (2) Hypertension Assessment/Plan: -continue metoprolol Code(s): I10 - ESSENTIAL (PRIMARY) HYPERTENSION
[2017-04-01] MEDS: METOPROLOL TARTRATE 50 MG TABLET (FP) PO SCH (22:14)
[2017-04-01] MEDS: oxyCODONE HCL 5 MG TABLET PO PRN (22:15)
[2017-04-02] MEDS: RANITIDINE HCL 150 MG TABLET (FP) PO SCH ×2 (09:56→21:57)
[2017-04-02] MEDS: METHENAMINE PO SCH (09:56)
--- NOTE | 2017-04-02 12:17 | PN ---
Progress Note, Physician Chief Complaint: Ms Sanders still with severe pain. No cp, sob, n/v - Current Medication List Current Medications: Active Medications Ibuprofen (Motrin -) 600 mg PO Q6H PRN PRN Reason: FEVER Metoprolol Tartrate (Lopressor -) 75 mg PO HS [facility] Last Admin: 04/01/17 22:14 Dose: 75 mg Non-Formulary Medication (Methenamine) 1 grams PO DAILY [facility] Last Admin: 04/02/17 09:56 Dose: 1 grams Oxycodone HCl (Roxicodone -) 5 mg PO Q4H PRN PRN Reason: PAIN Last Admin: 04/01/17 22:15 Dose: 5 mg Ranitidine HCl (Zantac -) 150 mg PO BID [facility] Last Admin: 04/02/17 09:56 Dose: 150 mg - Objective Vital Signs: Vital Signs Temperature 98.2 F 04/02/17 10:00 Pulse Rate 58 L 04/02/17 10:00 Respiratory Rate 20 04/02/17 10:00 Blood Pressure 141/54 04/02/17 10:00 O2 Sat by Pulse Oximetry (%) 98 04/01/17 14:00 Constitutional: Yes: Well Nourished, No Distress, Calm Cardiovascular: Yes: Regular Rate and Rhythm. No: Gallop, Murmur, Rub Respiratory: Yes: Regular, CTA Bilaterally. No: Rales, Rhonchi, Wheezes Gastrointestinal: Yes: Normal Bowel Sounds, Soft. No: Distention, Tenderness Extremities: Yes: WNL Edema: No Labs: INR, PTT INR 1.08 (0.82-1.09) 03/31/17 13:42 Problem List - Problems (1) Knee pain, acute Code(s): M25.569 - PAIN IN UNSPECIFIED KNEE Qualifiers: Laterality: right Qualified Code(s): M25.561 - Pain in right knee (2) Hypertension Code(s): I10 - ESSENTIAL (PRIMARY) HYPERTENSION Assessment/Plan (1) Knee pain, acute Assessment/Plan: -MRI performed and read reviewed -awaiting ortho consult -PT following, patient unsafe discharge home currently -continue management, may need SNF Code(s): M25.569 - PAIN IN UNSPECIFIED KNEE Qualifiers: Laterality: right Qualified Code(s): M25.561 - Pain in right knee (2) Hypertension Assessment/Plan: -continue metoprolol Code(s): I10 - ESSENTIAL (PRIMARY) HYPERTENSION
[2017-04-02] MEDS: DOCUSATE SODIUM 100 MG CAPSULE (FP) PO SCH ×2 (13:23→21:53)
[2017-04-02] MEDS: POLYETHYLENE GLYCOL 3350 119 GM BTL PO SCH ×2 (13:26→21:56)
[2017-04-02] MEDS ORDERED: PNEUMOC 13-VAL CONJ-DIP CRM/PF 0.5 ML DISP.SYRIN IM ONE (16:02)
--- NOTE | 2017-04-02 16:48 | PN ---
Progress Note (short form) - Note Progress Note: Pt seen and examined. She is a 76 year old female s/p fall, where she describes her left knee giving out. Yesterday she could not ambulate because of left knee pain. Today she did walk, left knee hurt but it is much improved. PE Left knee looks much better as per the pt No bruising, + small joint effusion Good and much improved ROM, full flexion and extension Good resistance strength in both flexion and extension No instability: ACL, PCL, LCL, MCL all feel intact + very tender at 8/10 globally around left knee, both medially and laterally MRI Left leg - shows only OA, a left knee effusion, and a tear of the lateral meniscus Imp Acute left knee sprain/contusion on top of chronic OA related pain. Rec WBAT P.T. for ambulation assistance. ROM exercises Ice PRN F/U as an out pt for knee OA treatment
[2017-04-02] MEDS ORDERED: PT OWN MED DRAWER 7, Y5N ONE (21:14)
[2017-04-02] MEDS: METOPROLOL TARTRATE 50 MG TABLET (FP) PO SCH (21:56)
[2017-04-02] MEDS: oxyCODONE HCL 5 MG TABLET PO PRN (21:57)
[2017-04-03] MEDS: POLYETHYLENE GLYCOL 3350 119 GM BTL PO SCH ×2 (09:46→21:18)
[2017-04-03] MEDS: RANITIDINE HCL 150 MG TABLET (FP) PO SCH ×2 (09:46→21:18)
[2017-04-03] MEDS: METHENAMINE PO SCH (09:46)
[2017-04-03] MEDS: DOCUSATE SODIUM 100 MG CAPSULE (FP) PO SCH ×2 (09:46→21:17)
[2017-04-03] MEDS ORDERED: SODIUM PHOSPHATE/NA BIPHOS 133 ML ENEMA PR ONE (12:17)
--- NOTE | 2017-04-03 12:38 | PN ---
Progress Note, Physician Chief Complaint: Ms Sanders has pain after walking. No cp, sob, n/v. Complains of constipation but refusing some stool softeners - Current Medication List Current Medications: Active Medications Docusate Sodium (Colace -) 100 mg PO BID [facility] Last Admin: 04/03/17 09:46 Dose: 100 mg Ibuprofen (Motrin -) 600 mg PO Q6H PRN PRN Reason: FEVER Metoprolol Tartrate (Lopressor -) 75 mg PO HS [facility] Last Admin: 04/02/17 21:56 Dose: 75 mg Non-Formulary Medication (Methenamine) 1 grams PO DAILY [facility] Last Admin: 04/03/17 09:46 Dose: 1 grams Oxycodone HCl (Roxicodone -) 5 mg PO Q4H PRN PRN Reason: PAIN Last Admin: 04/02/17 21:57 Dose: 5 mg Polyethylene Glycol (Miralax (For Daily Use) -) 17 gm PO BID [facility] Last Admin: 04/03/17 09:46 Dose: 17 gm Ranitidine HCl (Zantac -) 150 mg PO BID [facility] Last Admin: 04/03/17 09:46 Dose: 150 mg Sodium Phosphate (Fleet Adult Rectal Enema -) 133 ml [place] ONCE ONE Stop: 04/03/17 12:18 - Objective Vital Signs: Vital Signs Temperature 96.9 F L 04/03/17 10:00 Pulse Rate 60 04/03/17 10:00 Respiratory Rate 20 04/03/17 10:00 Blood Pressure 100/62 04/03/17 10:00 O2 Sat by Pulse Oximetry (%) 98 04/02/17 14:00 Constitutional: Yes: Well Nourished, No Distress, Calm Cardiovascular: Yes: Regular Rate and Rhythm. No: Gallop, Murmur, Rub Respiratory: Yes: Regular, CTA Bilaterally. No: Rales, Rhonchi, Wheezes Gastrointestinal: Yes: Normal Bowel Sounds, Soft. No: Distention, Tenderness Extremities: Yes: WNL Edema: No Labs: INR, PTT INR 1.08 (0.82-1.09) 03/31/17 13:42 Problem List - Problems (1) Knee pain, acute Code(s): M25.569 - PAIN IN UNSPECIFIED KNEE Qualifiers: Laterality: right Qualified Code(s): M25.561 - Pain in right knee (2) Hypertension Code(s): I10 - ESSENTIAL (PRIMARY) HYPERTENSION (3) Constipation Code(s): K59.00 - CONSTIPATION, UNSPECIFIED Assessment/Plan (1) Knee pain, acute Assessment/Plan: -still with difficulty ambulating -appreciate ortho assistance -needs SNF placement Code(s): M25.569 - PAIN IN UNSPECIFIED KNEE Qualifiers: Laterality: right Qualified Code(s): M25.561 - Pain in right knee (2) Hypertension Assessment/Plan: -continue metoprolol Code(s): I10 - ESSENTIAL (PRIMARY) HYPERTENSION (3) Constipation -encouraged to take stool softeners
[2017-04-03] MEDS: METOPROLOL TARTRATE 50 MG TABLET (FP) PO SCH (21:18)
[2017-04-04] MEDS: DOCUSATE SODIUM 100 MG CAPSULE (FP) PO SCH ×3 (09:25→22:51)
[2017-04-04] MEDS: METHENAMINE PO SCH (09:25)
[2017-04-04] MEDS: RANITIDINE HCL 150 MG TABLET (FP) PO SCH ×2 (09:25→22:43)
[2017-04-04] MEDS: POLYETHYLENE GLYCOL 3350 119 GM BTL PO SCH ×2 (09:26→22:45)
--- NOTE | 2017-04-04 13:23 | PN ---
Progress Note, Physician Chief Complaint: Ms Sanders still having pain with ambulation. +bm today. No cp, sob, n/v. - Current Medication List Current Medications: Active Medications Docusate Sodium (Colace -) 100 mg PO BID [facility] Last Admin: 04/04/17 09:25 Dose: 100 mg Ibuprofen (Motrin -) 600 mg PO Q6H PRN PRN Reason: FEVER Metoprolol Tartrate (Lopressor -) 75 mg PO HS [facility] Last Admin: 04/03/17 21:18 Dose: 75 mg Non-Formulary Medication (Methenamine) 1 grams PO DAILY [facility] Last Admin: 04/04/17 09:25 Dose: 1 grams Oxycodone HCl (Roxicodone -) 5 mg PO Q4H PRN PRN Reason: PAIN Last Admin: 04/02/17 21:57 Dose: 5 mg Polyethylene Glycol (Miralax (For Daily Use) -) 17 gm PO BID [facility] Last Admin: 04/04/17 09:26 Dose: 17 gm Ranitidine HCl (Zantac -) 150 mg PO BID [facility] Last Admin: 04/04/17 09:25 Dose: 150 mg - Objective Vital Signs: Vital Signs Temperature 97.9 F 04/04/17 10:00 Pulse Rate 54 L 04/04/17 10:00 Respiratory Rate 20 04/04/17 10:00 Blood Pressure 103/54 04/04/17 10:00 O2 Sat by Pulse Oximetry (%) 97 04/03/17 21:00 Constitutional: Yes: Well Nourished, No Distress, Calm Cardiovascular: Yes: Regular Rate and Rhythm. No: Gallop, Murmur, Rub Respiratory: Yes: Regular, CTA Bilaterally. No: Rales, Rhonchi, Wheezes Gastrointestinal: Yes: Normal Bowel Sounds, Soft. No: Distention, Tenderness Extremities: Yes: WNL Edema: No Labs: INR, PTT INR 1.08 (0.82-1.09) 03/31/17 13:42 Problem List - Problems (1) Knee pain, acute Code(s): M25.569 - PAIN IN UNSPECIFIED KNEE Qualifiers: Laterality: right Qualified Code(s): M25.561 - Pain in right knee (2) Hypertension Code(s): I10 - ESSENTIAL (PRIMARY) HYPERTENSION (3) Constipation Code(s): K59.00 - CONSTIPATION, UNSPECIFIED Assessment/Plan (1) Knee pain, acute Assessment/Plan: -continue PT -SNF placement Code(s): M25.569 - PAIN IN UNSPECIFIED KNEE Qualifiers: Laterality: right Qualified Code(s): M25.561 - Pain in right knee (2) Hypertension Assessment/Plan: -continue metoprolol Code(s): I10 - ESSENTIAL (PRIMARY) HYPERTENSION (3) Constipation -resolved
[2017-04-04] MEDS: METOPROLOL TARTRATE 50 MG TABLET (FP) PO SCH (22:43)
--- NOTE | 2017-04-05 08:22 | PN ---
Progress Note (short form) - Note Progress Note: Ortho Pt seen and examined s/p left knee contusion/djd- improving decr swelling, decr pain, incr rom nvi a/p PT wbat d/c planning to snf d/w Dr. Andrews
[2017-04-05] MEDS ORDERED: PT OWN MED DRAWER 7, Y5N ONE (09:08)
[2017-04-05] MEDS: RANITIDINE HCL 150 MG TABLET (FP) PO SCH (09:10)
[2017-04-05] MEDS: DOCUSATE SODIUM 100 MG CAPSULE (FP) PO SCH (09:10)
[2017-04-05] MEDS: POLYETHYLENE GLYCOL 3350 119 GM BTL PO SCH (09:10)
[2017-04-05] MEDS: METHENAMINE PO SCH (09:10)
[2017-04-05 10:57] VITALS: BP 113/58; PULSE 58; TEMP 97.7
--- NOTE | 2017-04-05 11:26 | DS ---
Physical Examination Vital Signs: Vital Signs Temperature 97.7 F 04/05/17 10:00 Pulse Rate 58 L 04/05/17 10:00 Respiratory Rate 20 04/05/17 10:00 Blood Pressure 113/58 04/05/17 10:00 O2 Sat by Pulse Oximetry (%) 95 04/05/17 09:00 Constitutional: Yes: Well Nourished, No Distress, Calm Cardiovascular: Yes: Regular Rate and Rhythm. No: Gallop, Murmur, Rub Respiratory: Yes: Regular, CTA Bilaterally. No: Rales, Rhonchi, Wheezes Gastrointestinal: Yes: Normal Bowel Sounds, Soft. No: Distention, Tenderness Extremities: Yes: WNL Edema: No Discharge Summary Reason For Visit: ACUTE KNEE PAIN, NONAMBULATORY Current Active Problems Constipation (Acute) Hypertension (Acute) Inability to ambulate due to knee (Acute) Joint effusion of knee (Acute) Knee pain, acute (Acute) Hospital Course: (1) Knee pain, acute Code(s): M25.569 - PAIN IN UNSPECIFIED KNEE Qualifiers: Laterality: right Qualified Code(s): M25.561 - Pain in right knee (2) Hypertension Code(s): I10 - ESSENTIAL (PRIMARY) HYPERTENSION (3) Constipation Code(s): K59.00 - CONSTIPATION, UNSPECIFIED Ms Sanders is a very pleasant 76 year old female who came in with mechanical fall and acute knee pain. The original plan was for her to be discharged home, however she was unable to ambulate safely. She underwent MRI which did not show fracture but did show a ligament tear. She was seen by ortho, no surgical intervention is required. She was seen by PT while here. It was determined she would benefit from SNF placement. She is safe for discharge to SNF. Condition: Good - Instructions Diet, Activity, Other Instructions: sodium controlled diet. Up with assistance, further activity per PT at SNF Referrals: Jose Sanon MD [Primary Care Provider] - Disposition: [facility] - Home Medications Comprehensive Discharge Medication List: Ambulatory Orders Metoprolol Tartrate [Lopressor -] 75 mg PO HS 02/03/15 Ranitidine HCl [Zantac] 150 mg PO BID 02/03/15 Methenamine Hippurate [Hiprex [Nf] -] PO PRN 03/31/17 Docusate Sodium [Colace -] 100 mg PO BID cap 04/05/17 Oxycodone HCl [Roxicodone -] 5 mg PO Q4H PRN #0 tablet MDD 20mg 04/05/17 Polyethylene Glycol 3350 [Miralax 119 gm Btl -] 17 gm PO BID #1 bottle 04/05/17
== END 2017-04-05 13:00 | DRG 566 ==
LOC: JER 12:34 → JERBED 14:07 → J5S 15:58 → OBSVTOIN 04-02 12:35
PROVIDERS: ADMIT Specialist; ATTEND Specialist
DX: M25.461 Effusion, right knee (principal); M25.561 Pain in right knee; M54.9 Dorsalgia, unspecified; I10 Essential (primary) hypertension; R26.2 Difficulty in walking, not elsewhere classified; K59.00 Constipation, unspecified; Z87.891 Personal history of nicotine dependence
CPT/HCPCS: 36415; 71010-TC; 73562-TC-LT; 73721-RT-TC; 80053; 81003; 85025; 85610; 90670; 93005; 93010; 97116-GP; 97161-GP; 99281-25; 99282-25; G0378

== ENCOUNTER 2018-12-26 06:43 | Emergency (ER) | payer OTHER, MEDICARE ==
[2018-12-26 07:02] VITALS: BP 152/87; PULSE 59; TEMP 97.9; BMI 32.5
--- NOTE | 2018-12-26 07:23 | PDOC ---
History of Present Illness - General Chief Complaint: Pain, Acute Stated Complaint: GAS PAIN Time Seen by Provider: 12/26/18 07:20 - History of Present Illness Initial Comments: 12/26/18 07:35 Chief complaint: Upper back pain History of present illness: Patient complains of left upper back pain since last night. The pain is localized to the lower scapula and is greatly aggravated by movement and change of positions. It is extremely difficult for the patient to arise from a sitting or lying position because of the pain. No injury, heavy work, or lifting. Review of systems: Denies anterior chest pain, nausea, diaphoresis, shortness of breath, fever or cough, URI symptoms, sore throat, abdominal pain, vomiting or diarrhea, urinary symptoms, vaginal bleeding or discharge, visual or focal neurologic symptoms, unsteadiness of gait. Remainder systems reviewed and negative Past medical history: Mild high blood pressure controlled on Lopressor, dyspepsia/GERD requiring Zantac, overactive bladder, constipation, hysterectomy for endometrial cancer approximately 2 years ago, followed without signs of recurrence. No known cardiac disease. ALLERGIES: Minocycline, Levaquin, and shellfish Social history: Denies tobacco alcohol or nonprescription drugs. Lives with her son. Fully active and without disability. Ambulates without restriction Family history: Reviewed and noncontributory including early coronary artery disease, metabolic disease including diabetes, and cancer. Physical exam: Alert and oriented well-developed well-nourished no acute distress at rest cheerful and cooperative. Considerable left upper back pain with attempted movement, sitting up, or standing. PERRLA, fundi benign, ENT clear Neck supple without bruit mass or nodes Lungs clear with full breath sounds throughout bilaterally. The pain does not appear to be pleuritic There is no rash and there are no skin changes the left upper back. There is no tenderness to palpation and no deformity. Pain can be elicited with rotation of the torso, movement from the lying to the sitting position, and movement of the left arm. CV S1 and S2 normal without murmur rub or gallop pulses full and symmetric no JVD or edema no bruits Abdomen nondistended. Bowel sounds normal. Soft without mass tenderness organomegaly Neurological C2 to 12 intact. Strength full and symmetric. No focal sensory or motor deficits. Gait stable and unimpaired Extremities no CCE Skin clear, no rash, adequate turgor and wet mucous membranes Impression: Acute musculoskeletal pain seems the most likely etiology, considering the nature of the pain its location and his aggravation by mechanical factors. Plan: EKG and enzymes, CBC chemistries, chest x-ray, analgesics and observation. Further evaluation depending on results and response to therapy. Past History - Past Medical History Allergies/Adverse Reactions: Allergies Allergy/AdvReac Type Severity Reaction Status Date / Time minocycline HCl Allergy Mild Verified 03/31/17 12:42 [From Minocin] Shellfish Allergy Mild GI UPSET Verified 03/31/17 12:42 levofloxacin [From Levaquin] AdvReac Severe Nausea Verified 03/31/17 12:42 Home Medications: Ambulatory Orders Metoprolol Tartrate [Lopressor -] 75 mg PO HS 02/03/15 Ranitidine HCl [Zantac] 150 mg PO BID 02/03/15 Methenamine Hippurate [Hiprex [Nf] -] 0.5 tab PO DAILY 03/31/17 Docusate Sodium [Colace -] 100 mg PO BID cap 04/05/17 Solifenacin Succinate [Vesicare -] 5 mg PO DAILY 12/26/18 Anemia: No Asthma: Yes (SEASONAL, MAYBE A COUPLE OF TIMES A YEAR) Cancer: Yes Cardiac Disorders: Yes (MITRAL VALVE PROLAPSE) CVA: No COPD: No CHF: No Dementia: No Diabetes: No GI Disorders: Yes (GERD) Disorders: Yes (HX UTI) HTN: Yes Hypercholesterolemia: Yes Liver Disease: No Seizures: No Thyroid Disease: No Other medical history: CHRONIC BACK PAIN - Surgical History Abdominal Surgery: Yes Appendectomy: Yes (1961) Cardiac Surgery: No Cholecystectomy: No Lung Surgery: No Neurologic Surgery: No Orthopedic Surgery: Yes (RIGHT ROATATOR CUFF REPAIR-1993) - Suicide/Smoking/Psychosocial Hx Smoking Status: Yes Smoking History: Unknown if ever smoked Have you smoked in the past 12 months: No Number of Cigarettes Smoked Daily: 0 If you are a former smoker, when did you quit?: 1989 Hx Alcohol Use: No Drug/Substance Use Hx: No Substance Use Type: None Hx Substance Use Treatment: No *Physical Exam - Vital Signs Last Vital Signs Temp Pulse Resp BP Pulse Ox 97.9 F 59 L 18 152/87 97 12/26/18 06:55 12/26/18 06:55 12/26/18 06:55 12/26/18 06:55 12/26/18 06:55 Moderate Sedation - Procedure Monitoring Vital Signs: Procedure Monitoring Vital Signs Temperature 97.9 F 12/26/18 06:55 Pulse Rate 59 L 12/26/18 06:55 Respiratory Rate 18 12/26/18 06:55 Blood Pressure 152/87 12/26/18 06:55 O2 Sat by Pulse Oximetry (%) 97 12/26/18 06:55 ED Treatment Course - LABORATORY CBC & Chemistry Diagram: 12/26/18 07:25 12/26/18 07:25 Medical Decision Making - Medical Decision Making 12/26/18 07:45 EKG shows minimal sinus bradycardia 59/m normal axes and intervals. There are nonspecific ST-T wave changes in the anterior leads which were present on prior EKGs from November and March 2017. There are no new EKG changes suggestive of an acute ischemic episode. 12/26/18 09:43 Chest x-ray: Normal Labs including cardiac enzymes normal Patient much improved with the administration of analgesics. Moving freely, ambulating well without significant discomfort. To continue Tylenol, heat, ice, and rest. Follow-up with primary physician. Fully ambulatory and in no significant pain at discharge. *DC/Admit/Observation/Transfer Diagnosis at time of Disposition: Upper back strain Qualifiers: Encounter type: initial encounter Qualified Code(s): S29.012A - Strain of muscle and tendon of back wall of thorax, initial encounter - Discharge Dispostion Disposition: HOME Condition at time of disposition: Improved Decision to Admit order: No - Referrals Referrals: Jose Sanon MD [Primary Care Provider] - 2 Days - Patient Instructions Printed Discharge Instructions: DI for Back Strain or Sprain Additional Instructions: Rest, heat alternating with ice, Tylenol every 4 hours if pain persists See primary physician for follow-up 2-3 days Avoid foods that produced gas such as onions, tomatoes, etc. Gas-X Beano can be used as needed. - Post Discharge Activity
[2018-12-26] MEDS ORDERED: ACETAMINOPHEN 1000 MG/100 ML VIAL (NON FORMULARY) IVPB ONE (07:33)
[2018-12-26] MEDS ORDERED: FAMOTIDINE 20 MG/50 ML IVPB 20 MG/50 ML MG IVPB ONE ×2 (07:34→07:35)
[2018-12-26] MEDS ORDERED: ACETAMINOPHEN INJECTION 100 ML IVPB ONE (07:34)
[2018-12-26 08:03] LABS: BASO % 0.4 % (0-2.0); EOS % 1.1 % (0-4.5); HEMATOCRIT 39.9 % (32.4-45.2); HEMOGLOBIN 13.1 GM/dl (10.7-15.3); LYMPH % 18.8 % (8-40); MCH 31.2 pg (25.7-33.7); MCHC 32.8 g/dl (32.0-36.0); MEAN CELL VOLUME 95.1 fl (80-96); MEAN PLT VOLUME 8.3 fl (7.5-11.1); MONO % 9.4 % (3.8-10.2); NEUT % 70.3 % (42.8-82.8); PLATELET COUNT 198 K/MM3 (134-434); RDW 13.6 % (11.6-15.6); WHITE BLOOD COUNT 6.7 K/mm3 (4.0-10.8)
[2018-12-26 08:49] LABS: ALBUMIN 3.8 g/dl (3.4-5.0); ALK PHOS 51 U/L (45-117); ANION GAP 5 MMOL/L (8-16); BILIRUBIN,TOTAL 0.8 mg/dl (0.2-1); BLOOD UREA NITROGEN 29 mg/dl (7-18); CALCIUM 9.4 mg/dl (8.5-10); CHLORIDE 103 mmol/L (98-107); CO2 26 mmol/L (21-32); CREATININE 0.7 mg/dl (0.55-1.3); GLUCOSE,RANDOM 100 mg/dl (74-106); POTASSIUM 4.4 mmol/L (3.5-5.1); SGOT/AST 17 U/L (15-37); SGPT/ALT 15 U/L (13-61); SODIUM 134 mmol/L (136-145); TOT PROT 6.5 g/dl (6.4-8.2)
[2018-12-26 09:09] LABS: URINE APPEARANCE CLEAR; URINE BILIRUBIN NEGATIVE (NEGATIVE); URINE COLOR YELLOW; URINE GLUCOSE (UA) NEGATIVE (NEGATIVE); URINE KETONE NEGATIVE (NEGATIVE); URINE LEUK ESTERASE NEGATIVE (NEGATIVE); URINE NITRITE NEGATIVE (NEGATIVE); URINE PROTEIN NEGATIVE (NEGATIVE); URINE UROBILINOGEN 0.2 (0.2-1.0)
--- NOTE | 2018-12-26 12:45 | EKG ---
Test Reason : Blood Pressure : / mmHG Vent. Rate : 059 BPM Atrial Rate : 059 BPM P-R Int : 146 ms QRS Dur : 078 ms QT Int : 420 ms P-R-T Axes : 052 052 018 degrees QTc Int : 415 ms SINUS BRADYCARDIA NONSPECIFIC ST AND T WAVE ABNORMALITY ABNORMAL ECG WHEN COMPARED WITH ECG OF 31-MAR-2017 13:45, NO SIGNIFICANT CHANGE WAS FOUND Confirmed by GRETEL SHARP, KATHERIN ([id number]) on 12/26/2018 12:44:44 PM Referred By: LESLIE LU Confirmed By:KATHERIN MAJANO MD
== END 2018-12-26 09:55 | disposition home or self-care (01) ==
LOC: FER 06:43
PROC: 3E033NZ Introduction of Analgesics, Hypnotics, Sedatives into Peripheral Vein, Percutaneous Approach (ICD-10-PCS; principal; 2018-12-26)
PROC: 3E033GC Introduction of Other Therapeutic Substance into Peripheral Vein, Percutaneous Approach (ICD-10-PCS; 2018-12-26)
DX: S29.012A Strain of muscle and tendon of back wall of thorax, initial encounter (principal); I10 Essential (primary) hypertension; K21.9 Gastro-esophageal reflux disease without esophagitis; K59.00 Constipation, unspecified; Z85.89 Personal history of malignant neoplasm of other organs and systems
CPT/HCPCS: 36415; 71045-TC-FY; 80053; 81003; 82550; 84484; 85025; 93005; 99283-25; J0131

== ENCOUNTER 2019-04-27 13:29 | Observation (INO) | payer OTHER, MEDICARE ==
[2019-04-27 13:46] VITALS: BMI 32.2
--- NOTE | 2019-04-27 14:14 | PDOC ---
History of Present Illness - General Chief Complaint: Pain Stated Complaint: LEFT SHOULDER AND NECK PAIN Time Seen by Provider: 04/27/19 13:35 - History of Present Illness Initial Comments: 04/27/19 14:16 79 F with h/o HTN, MVP presents to ED with syncopal episode and L neck pain. Pt states that she has been feeling sick for the past week with a cough. She denies F/C but reports persistent cough. Pt states that she went to urgent care last week and was prescribed a Z-pack and cough medicine. She finished the Z- pack but continued to feel sick. 2 days ago, pt states that she was sitting reading her newspaper, and when she got up to throw it away, she suddenly fainted. Pt denies any preceding lightheadedness/CP/SOB/palpitations. She woke up on the ground and had to be helped up. Since then, she has had pain in her L neck and shoulder. Denies SMITH/N/V. Denies weakness/numbness in any extremity. Past History - Past Medical History Allergies/Adverse Reactions: Allergies Allergy/AdvReac Type Severity Reaction Status Date / Time naproxen Allergy Intermediate Verified 04/27/19 13:33 minocycline HCl Allergy Mild Verified 04/27/19 13:33 [From Minocin] Shellfish Allergy Mild GI UPSET Verified 04/27/19 13:33 levofloxacin [From Levaquin] AdvReac Intermediate Nausea Verified 04/27/19 13:33 Home Medications: Ambulatory Orders Metoprolol Tartrate [Lopressor -] 75 mg PO HS 02/03/15 Ranitidine HCl [Zantac] 150 mg PO BID 02/03/15 Methenamine Hippurate [Hiprex [Nf] -] 0.5 tab PO DAILY 03/31/17 Docusate Sodium [Colace -] 100 mg PO BID cap 04/05/17 Solifenacin Succinate [Vesicare -] 5 mg PO DAILY 12/26/18 Anemia: No Asthma: Yes (SEASONAL, MAYBE A COUPLE OF TIMES A YEAR) Cancer: Yes (UTERIINE) Cardiac Disorders: Yes (MITRAL VALVE PROLAPSE) CVA: No COPD: No CHF: No Dementia: No Diabetes: No GI Disorders: Yes (GERD) Disorders: Yes (HX UTI) HTN: Yes Hypercholesterolemia: Yes Liver Disease: No Seizures: No Thyroid Disease: No Other medical history: BACK PROBLEMS - Surgical History Abdominal Surgery: Yes Appendectomy: Yes (1961) Cardiac Surgery: No Cholecystectomy: No Lung Surgery: No Neurologic Surgery: No Orthopedic Surgery: Yes (RIGHT ROATATOR CUFF REPAIR-1993) - Suicide/Smoking/Psychosocial Hx Smoking Status: Yes Smoking History: Never smoked Have you smoked in the past 12 months: No Number of Cigarettes Smoked Daily: 0 If you are a former smoker, when did you quit?: 1989 Information on smoking cessation initiated: No Hx Alcohol Use: No Drug/Substance Use Hx: No Substance Use Type: None Hx Substance Use Treatment: No Review of Systems - Review of Systems Comments:: 04/27/19 14:19 GENERAL/CONSTITUTIONAL: No fever or chills. No weakness. HEAD, EYES, EARS, NOSE AND THROAT: No change in vision. No ear pain or discharge. No sore throat. CARDIOVASCULAR: + LOC, No chest pain, no shortness of breath RESPIRATORY: + cough, no wheezing, or hemoptysis. GASTROINTESTINAL: No nausea, vomiting, diarrhea or constipation. GENITOURINARY: No dysuria, frequency, or change in urination. MUSCULOSKELETAL: + L neck pain and L shoulder pain SKIN: No rash NEUROLOGIC: No vertigo, no change in strength/sensation. ENDOCRINE: No increased thirst. No abnormal weight change. HEMATOLOGIC/LYMPHATIC: No anemia, easy bleeding, or history of blood clots. ALLERGIC/IMMUNOLOGIC: No hives or skin allergy. *Physical Exam - Vital Signs Last Vital Signs Temp Pulse Resp BP Pulse Ox 98.4 F 58 L 16 154/76 96 04/27/19 13:31 04/27/19 13:31 04/27/19 13:31 04/27/19 13:31 04/27/19 13:31 - Physical Exam Comments: 04/27/19 14:19 GENERAL: Awake, alert, and fully oriented, in no acute distress. HEAD: No signs of trauma EYES: PERRLA, EOMI, sclera anicteric, conjunctiva clear ENT: Auricles normal inspection, hearing grossly normal, nares patent, oropharynx clear without exudates. Moist mucosa NECK: + L paraspinal TTP, no midline TTP, no stepoffs, Normal ROM, supple, no lymphadenopathy, JVD, or masses LUNGS: Breath sounds equal, clear to auscultation bilaterally. No wheezes, and no crackles HEART: Regular rate and rhythm, normal S1 and S2, no murmurs, rubs or gallops ABDOMEN: Soft, nontender, normoactive bowel sounds. No guarding, no rebound. No masses EXTREMITIES: Normal range of motion, no edema. No clubbing or cyanosis. No cords, erythema, or tenderness NEUROLOGICAL: Cranial nerves II through XII intact. 5/5 strength and sensation in all extremities, Normal speech, normal gait, normal cerebellar function SKIN: Warm, Dry, normal turgor, no rashes or lesions noted. ED Treatment Course - LABORATORY CBC & Chemistry Diagram: 04/27/19 14:26 04/27/19 15:30 - RADIOLOGY Radiology Studies Ordered: Category Date Time Status CERVICAL SPINE CT W/O CONTR [CT] Stat CT Scan 04/27/19 14:[address] WITHOUT CONTRAST [CT] Stat CT Scan 04/27/19 14:07 Ordered CHEST PA & LAT [RAD] Stat Radiology 04/27/19 14:07 Ordered Medical Decision Making - Medical Decision Making 04/27/19 14:20 79 F with syncopal episode and L neck and shoulder pain. Syncopal episode possibly vasovagal or orthostatic in the setting of upper respiratory illness. However, given age will evaluate for arrhythmia. No significant trauma on exam but will obtain CTs of head and c-spine, as well as shoulder X ray. Chest XR to evaluate cough. - Labs, trop - EKG - CXR, shoulder XR - CT head/c-spine - Admit tele 04/27/19 16:26 Labs wnl CTs unremarkable other than pulmonary nodule. Pt informed of results and instructed to f/u with PMD. Will admit to tele obs for syncope 04/27/19 17:01 Pt admitted to Hospitalist. *DC/Admit/Observation/Transfer Diagnosis at time of Disposition: Syncope - Discharge Dispostion Condition at time of disposition: Stable Decision to Admit order: Yes - Referrals - Patient Instructions - Post Discharge Activity - Attestations Physician Attestion: 04/27/19 17:01 I, Dr. Brandon Arboleda MD, attest that this document has been prepared under my direction and personally reviewed by me in its entirety. I further attest, that it accurately reflects all work, treatment, procedures and medical decision -making performed by me.
[2019-04-27] MEDS ORDERED: ACETAMINOPHEN 325 MG TABLET (FP) PO ONE (14:21)
[2019-04-27 14:36] LABS: BASO % 0.2 % (0-2.0); EOS % 0.9 % (0-4.5); HEMATOCRIT 45.2 % (32.4-45.2); HEMOGLOBIN 14.5 GM/dl (10.7-15.3); LYMPH % 11.2 % (8-40); MCH 30.6 pg (25.7-33.7); MCHC 32.1 g/dl (32.0-36.0); MEAN CELL VOLUME 95.5 fl (80-96); MONO % 6.2 % (3.8-10.2); NEUT % 81.5 % (42.8-82.8); PLATELET COUNT 245 K/MM3 (134-434); RBC 4.73 M/mm3 (3.60-5.2); RDW 14.4 % (11.6-15.6); WHITE BLOOD COUNT 8.5 K/mm3 (4.0-10.8)
[2019-04-27] MEDS ORDERED: ACETAMINOPHEN 325 MG TABLET (FP) ONE (15:12)
[2019-04-27] MEDS ORDERED: SODIUM CHLORIDE FOR INHALATION 3 ML VIAL.NEB IH ONE ×2 (15:50→15:58)
[2019-04-27 16:06] LABS: CALCIUM 9.2 mg/dl (8.5-10); CREATININE 0.8 mg/dl (0.55-1.3); POTASSIUM 4.3 mmol/L (3.5-5.1); TOT PROT 7.4 g/dl (6.4-8.2)
--- NOTE | 2019-04-27 17:11 | HP ---
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 Ms. Sanders reports rising from her dining room chair to recycle the newspaper she had read, when she experienced a syncopal episode while bending forward to place her paper into the recycle bin. Her son heard the loud "bang" came to her assistance. Per her report, she had only lost consciousness of "a few seconds". She denies chest pain, SOB, palpitations, but admits to feeling extremely weak prior to syncopizing. She endorses dry cough x 1 week after recent sick contact with her close friend. Patient denies fever/chills/N/V/SMITH. Today, 04/27, she had severe neck pain without neuro deficits and presented for evaluation. In ED: - Labs including trop, unremarkable - EKG: SB 59bpm, without ischemic changes - CXR: no acute disease - CT head/c-spine: negative Decision made to Admit to tele for observation. History Source: Patient Limitations to Obtaining History: No Limitations - Past Medical History Cardiovascular: Yes: HTN, Murmur (MVP) Pulmonary: Yes: Asthma Gastrointestinal: Yes: GERD Reproductive: Yes: Postmenopausal Musculoskeletal: Yes: Chronic low back pain - Past Surgical History Past Surgical History: Yes: Hysterectomy Additional Past Surgical History: (RIGHT ROATATOR CUFF REPAIR-1993) Appendectomy: (1961) - Smoking History Smoking history: Former smoker Have you smoked in the past 12 months: No Aproximately how many cigarettes per day: 20 (20yrs) If you are a former smoker, when did you quit?: 1989 - Alcohol/Substance Use Hx Alcohol Use: No History of Substance Use: reports: None - Social History Usual Living Arrangement: Yes: With Child (son) ADL: Independent Occupation: Retired History of Recent Travel: No Other Social History: Home Medications - Allergies Allergies/Adverse Reactions: Allergies Allergy/AdvReac Type Severity Reaction Status Date / Time naproxen Allergy Intermediate Verified 04/27/19 13:33 minocycline HCl Allergy Mild Verified 04/27/19 13:33 [From Minocin] Shellfish Allergy Mild GI UPSET Verified 04/27/19 13:33 levofloxacin [From Levaquin] AdvReac Intermediate Nausea Verified 04/27/19 13:33 - Home Medications Home Medications: Ambulatory Orders Metoprolol Tartrate [Lopressor -] 75 mg PO HS 02/03/15 Ranitidine HCl [Zantac] 150 mg PO BID 02/03/15 Methenamine Hippurate [Hiprex [Nf] -] 0.5 tab PO DAILY 03/31/17 Docusate Sodium [Colace -] 100 mg PO BID cap 04/05/17 Solifenacin Succinate [Vesicare -] 5 mg PO DAILY 12/26/18 Family Disease History - Family Disease History Family Disease History: Other: Father ( (89) Lung cancer), Mother ( (92) heart disease), Sister (alive (86) osteoporosis, CAD s/p CABG in her 60s) Other Family History: Sister alive (70) OA Review of Systems - Review of Systems Constitutional: reports: Malaise Eyes: reports: No Symptoms HENT: reports: No Symptoms Neck: reports: No Symptoms Cardiovascular: reports: No Symptoms Respiratory: reports: No Symptoms, Cough Gastrointestinal: reports: No Symptoms Genitourinary: reports: No Symptoms Breasts: reports: No Symptoms Reported Musculoskeletal: reports: Other (neck pain) Integumentary: reports: No Symptoms Neurological: reports: Unsteady Gait (reports walking "off balance alot") Endocrine: reports: No Symptoms Hematology/Lymphatic: reports: No Symptoms Psychiatric: reports: No Symptoms Physical Examination Vital Signs: Vital Signs Temperature 98.3 F 04/27/19 17:03 Pulse Rate 72 04/27/19 17:03 Respiratory Rate 16 04/27/19 13:31 Blood Pressure 132/58 L 04/27/19 17:03 O2 Sat by Pulse Oximetry (%) 98 04/27/19 17:03 Constitutional: Yes: No Distress, Calm Eyes: Yes: Conjunctiva Clear, PERRL HENT: Yes: Atraumatic, Normocephalic Neck: Yes: Supple, Trachea Midline Cardiovascular: Yes: Regular Rate and Rhythm Respiratory: Yes: Regular, CTA Bilaterally Gastrointestinal: Yes: Normal Bowel Sounds, Abdomen, Obese ...Rectal Exam: Yes: Deferred Breast(s): Yes: WNL Musculoskeletal: Yes: WNL Extremities: Yes: WNL Edema: No Peripheral Pulses WNL: Yes Peripheral Pulses: Left Radial: 2+, Right Radial: 2+, Left Doralis Pedis: 2+, Right Dorsalis Pedis: 2+ Integumentary: Yes: WNL Neurological: Yes: Alert, Oriented ...Motor Strength: WNL Psychiatric: Yes: WNL, Alert, Oriented Labs: CBC, BMP 04/27/19 14:26 04/27/19 15:30 Imaging - Results X-ray: Report Reviewed (CXR 04/27/2019 Impression: No acute cardiopulmonary disease is present. Visualized osseous structures appear grossly intact. Correlate clinically for further evaluation. Reported By: Telma Mcwilliams MD [id number]), Other (L-spine xray 02/2019 Lumbar spine: Pain. 4 views lumbar spine have been submitted. In the AP view there are 5 lumbar type vertebral bodies with scoliosis, degenerative changes and wedging. The SI joints and paraspinal soft tissues appear intact and lateral images in neutral, flexion and extension reveal limited movement. There are degenerative changes with wedging. Blastic or lytic changes are not seen and there is no sign of gross fracture or subluxation. Intervertebral disc spaces appear grossly intact. The prevertebral soft tissues are unremarkable. If symptoms persist, further imaging and orthopedic consultation may be of help. Reported By: Kalpesh Gutierrez MD 02/09) Cat Scan: Report Reviewed (HEAD CT IMPRESSION: No CT evidence of acute pathology. Reported By: Kyle Ramírez MD 04/27/19 [id number]), Image Reviewed (CT C -spine 04/27/2019 Impression: no fracture is seen. A non-specific approximately 1.9 x 1.5cm right upper lobe pulmonary nodule is seen. Pulmonary consult is suggested. Read by Dr. Kyle Ramírez.) Other: Report Reviewed (Left shoulder Xray 04/27/2019 Impression: No acute cardiopulmonary disease is present. Visualized osseous structures appear grossly intact. Correlate clinically for further evaluation. Reported By: Telma Mcwilliams MD 04/27/19 [id number]) Problem List - Problems (1) Prophylactic measure Assessment/Plan: OOB to chair with assistance bowel regimen zantac daily Methenamine daily to prevent recurrent UTI SC heparin fall precautions Code(s): Z29.9 - ENCOUNTER FOR PROPHYLACTIC MEASURES, UNSPECIFIED (2) Syncope Assessment/Plan: monitor on tele overnight neuro consult carotid doppler/ echocardiogram ordered if stable can be d/salvador within 24hrs, with outpt follow up neuro check q4h holding vesicare Code(s): R55 - SYNCOPE AND COLLAPSE (3) Back pain Assessment/Plan: APAP PRN pain reposition q2hrs Code(s): M54.9 - DORSALGIA, UNSPECIFIED (4) Constipation Assessment/Plan: senna/colace Code(s): K59.00 - CONSTIPATION, UNSPECIFIED (5) Hypertension Assessment/Plan: continue lopressor 75mg qhs cardiac diet Code(s): I10 - ESSENTIAL (PRIMARY) HYPERTENSION (6) Cervicalgia Assessment/Plan: lidoderm patch for neck pain consider PT evaluation Code(s): M54.2 - CERVICALGIA Assessment/Plan Code status: Visit type - Emergency Visit Emergency Visit: Yes ED Registration Date: 04/27/19 Care time: The patient presented to the Emergency Department on the above date and was hospitalized for further evaluation of their emergent condition. - New Patient This patient is new to me today: Yes Date on this admission: 04/27/19 - Critical Care Critical Care patient: No
[2019-04-27] MEDS ORDERED: ACETAMINOPHEN 325 MG TABLET (FP) PO PRN (17:17)
[2019-04-27] MEDS: RANITIDINE HCL 150 MG TABLET (FP) PO SCH (21:32)
[2019-04-27] MEDS: HEPARIN NA (PORCINE) 5,000 UNITS/ML 1ML VIAL SQ SCH (21:32)
[2019-04-27] MEDS: DOCUSATE SODIUM 100 MG CAPSULE (FP) PO SCH (21:32)
[2019-04-27] MEDS ORDERED: METOPROLOL TARTRATE 25 MG TABLET (FP) PO SCH (22:00)
[2019-04-27] MEDS ORDERED: SENNOSIDES 8.6MG TABLET (FP) PO SCH (22:00)
[2019-04-27] MEDS ORDERED: LIDOCAINE PATCH REMOVAL MC SCH ×2 (22:00)
[2019-04-28] MEDS: HEPARIN NA (PORCINE) 5,000 UNITS/ML 1ML VIAL SQ SCH (06:28)
[2019-04-28 08:14] LABS: BASO % 0.2 % (0-2.0); EOS % 1.9 % (0-4.5); HEMATOCRIT 37.3 % (32.4-45.2); HEMOGLOBIN 12.4 GM/dl (10.7-15.3); LYMPH % 28.4 % (8-40); MCH 31.4 pg (25.7-33.7); MCHC 33.3 g/dl (32.0-36.0); MEAN CELL VOLUME 94.2 fl (80-96); MONO % 13.7 % (3.8-10.2); NEUT % 55.8 % (42.8-82.8); PLATELET COUNT 178 K/MM3 (134-434); RBC 3.96 M/mm3 (3.60-5.2); RDW 13.6 % (11.6-15.6); WHITE BLOOD COUNT 5.9 K/mm3 (4.0-10.8)
[2019-04-28 08:18] LABS: ACTIVATED PTT 31.1 SECONDS (25.2-36.5)
[2019-04-28 08:23] LABS: INR 1.25 (0.82-1.09); PROTHROMBIN TIME (PATIENT) 13.9 SEC (10.2-13.0)
[2019-04-28 08:27] LABS: ALBUMIN 3.2 g/dl (3.4-5.0); BILIRUBIN,TOTAL 0.9 mg/dl (0.2-1); CALCIUM 8.3 mg/dl (8.5-10); CREATININE 0.9 mg/dl (0.55-1.3); MAGNESIUM 1.8 mg/dL (1.8-2.4); PHOSPHOROUS 2.8 mg/dl (2.5-4.9); TOT PROT 5.8 g/dl (6.4-8.2)
[2019-04-28 08:30] LABS: CHOLESTEROL 155 mg/dl (50-200); HDL CHOLESTEROL 84 mg/dl (40-60)
[2019-04-28 08:35] LABS: LDL CHOLESTEROL (ONLY DFH) 66 mg/dl (5-100); TRIGLYCERIDES 23 mg/dl (0-150)
--- NOTE | 2019-04-28 08:39 | CON.NEURO ---
Consult - Past Medical History Cardio/Vascular: Yes: HTN, Murmur (MVP) Pulmonary: Yes: Asthma Gastrointestinal: Yes: GERD Musculoskeletal: Yes: Chronic low back pain - Past Surgical History Past Surgical History: Yes: Hysterectomy - Alcohol/Substance Use Hx Alcohol Use: No History of Substance Use: reports: None - Smoking History Smoking history: Former smoker Have you smoked in the past 12 months: No Aproximately how many cigarettes per day: 20 (20yrs) If you are a former smoker, when did you quit?: 1989 - Social History ADL: Independent Occupation: Retired History of Recent Travel: No Home Medications - Allergies Allergies/Adverse Reactions: Allergies Allergy/AdvReac Type Severity Reaction Status Date / Time naproxen Allergy Intermediate Verified 04/27/19 13:33 minocycline HCl Allergy Mild Verified 04/27/19 13:33 [From Minocin] Shellfish Allergy Mild GI UPSET Verified 04/27/19 13:33 levofloxacin [From Levaquin] AdvReac Intermediate Nausea Verified 04/27/19 13:33 - Home Medications Home Medications: Ambulatory Orders Metoprolol Tartrate [Lopressor -] 75 mg PO HS 02/03/15 Ranitidine HCl [Zantac] 150 mg PO BID 02/03/15 Methenamine Hippurate [Hiprex [Nf] -] 0.5 tab PO DAILY 03/31/17 Docusate Sodium [Colace -] 100 mg PO BID cap 04/05/17 Solifenacin Succinate [Vesicare -] 5 mg PO DAILY 12/26/18 Family Disease History - Family Disease History Family Disease History: Other: Father ( (89) Lung cancer), Mother ( (92) heart disease), Brother, Sister (alive (86) osteoporosis, CAD s/p CABG in her 60s) Other Family History: Sister alive (70) OA Physical Exam-Neuro Vital Signs: Vital Signs Temperature 98.4 F 04/28/19 06:32 Pulse Rate 55 L 04/28/19 06:34 Respiratory Rate 18 04/28/19 08:09 Blood Pressure 124/67 04/28/19 06:34 O2 Sat by Pulse Oximetry (%) 98 04/28/19 08:09 Labs: CBC, BMP 04/28/19 07:29 INR, PTT INR 1.25 (0.82-1.09) H 04/28/19 07:29 Assessment/Plan Thanking you so much, covering for Dr Santana cc Episode of Passing out and neck pain HPI 79 year old female history of Asthma, Gerd, Low back pain. Last week she was suppose to have lilian in lower back , beause of flue it was deferred. Patient was coughing three days ago, when she felt very weak and passed out. Patient had ct head it is normal. THere is no seizure like activity, no tongue bite or incontinence. She is having neck pain, it is better than yesterday. She denies any pain radiating to arm and legs. PMH htn, mvp, asthma, gerd, low back pain, hysterectomy , rotator cuff repair ROS,FH,SH reviewed in chart Allergies/Adverse Reactions: Allergies Allergy/AdvReac Type Severity Reaction Status Date / Time naproxen Allergy Intermediate Verified 04/27/19 13:33 minocycline HCl Allergy Mild Verified 04/27/19 13:33 [From Minocin] Shellfish Allergy Mild GI UPSET Verified 04/27/19 13:33 levofloxacin [From Levaquin] AdvReac Intermediate Nausea Verified 04/27/19 13:33 Home Medications: Metoprolol Tartrate [Lopressor -] 75 mg PO HS 02/03/15 Ranitidine HCl [Zantac] 150 mg PO BID 02/03/15 Methenamine Hippurate [Hiprex [Nf] -] 0.5 tab NEUROLOGICAL EXAMINATION Alert oriented x 3,speech is normal, there is neck muscle spasm eomi, pupils reactive, no face asymmetry moving all ext sensation is noraml ct head is unremarkable Assessment/Plan : Syncopal episode, no evidence of tia or seizure , ct head is normal, neuro exam is normal. Concur with holster and cardiac work up. THere is no furhter neurological work up needed ( mri of brain or eeg), carotid ultrasound is pending 2. non radicular neck pain, neurological exam i snoraml. suspect neck pain due to muslce spasm, PT and nsaid prn Thanking you so much Fernando Antony MD
--- NOTE | 2019-04-28 09:30 | CON.CARD ---
Consult Consult Specialty:: Cardiology Referred by:: Medicine Reason for Consultation:: syncope - History of Present Illness Chief Complaint: syncope History of Present Illness: 79F h/o asthma, GERD, back pain, HTN, MVP p/w neck pain after syncopal episode. Happened two days ago, got up from chair and lost consciousness while bending forward. LOC for a few seconds, no chest pain, palps. [place] weak prior to losing consciousness. Also c/o cough. No prior cardiac hx - Past Medical History Cardio/Vascular: Yes: HTN, Murmur (MVP) Pulmonary: Yes: Asthma Gastrointestinal: Yes: GERD Musculoskeletal: Yes: Chronic low back pain - Past Surgical History Past Surgical History: Yes: Hysterectomy - Alcohol/Substance Use Hx Alcohol Use: No History of Substance Use: reports: None - Smoking History Smoking history: Former smoker Have you smoked in the past 12 months: No Aproximately how many cigarettes per day: 20 (20yrs) If you are a former smoker, when did you quit?: 1989 - Social History ADL: Independent Occupation: Retired History of Recent Travel: No Home Medications - Allergies Allergies/Adverse Reactions: Allergies Allergy/AdvReac Type Severity Reaction Status Date / Time naproxen Allergy Intermediate Verified 04/27/19 13:33 minocycline HCl Allergy Mild Verified 04/27/19 13:33 [From Minocin] Shellfish Allergy Mild GI UPSET Verified 04/27/19 13:33 levofloxacin [From Levaquin] AdvReac Intermediate Nausea Verified 04/27/19 13:33 - Home Medications Home Medications: Ambulatory Orders Metoprolol Tartrate [Lopressor -] 75 mg PO HS 02/03/15 Ranitidine HCl [Zantac] 150 mg PO BID 02/03/15 Methenamine Hippurate [Hiprex [Nf] -] 0.5 tab PO DAILY 03/31/17 Docusate Sodium [Colace -] 100 mg PO BID cap 04/05/17 Solifenacin Succinate [Vesicare -] 5 mg PO DAILY 12/26/18 Family Disease History - Family Disease History Family Disease History: Other: Father ( (89) Lung cancer), Mother ( (92) heart disease), Brother, Sister (alive (86) osteoporosis, CAD s/p CABG in her 60s) Other Family History: Sister alive (70) OA Review of Systems - Review of Systems Constitutional: reports: No Symptoms Eyes: reports: No Symptoms HENT: reports: No Symptoms Neck: reports: No Symptoms Cardiovascular: reports: No Symptoms Respiratory: reports: No Symptoms Gastrointestinal: reports: No Symptoms Genitourinary: reports: No Symptoms Musculoskeletal: reports: No Symptoms Integumentary: reports: No Symptoms Neurological: reports: No Symptoms Endocrine: reports: No Symptoms Hematology/Lymphatic: reports: No Symptoms Psychiatric: reports: No Symptoms Vital Signs: Vital Signs Temperature 98.4 F 04/28/19 06:32 Pulse Rate 55 L 04/28/19 06:34 Respiratory Rate 18 04/28/19 08:09 Blood Pressure 124/67 04/28/19 06:34 O2 Sat by Pulse Oximetry (%) 98 04/28/19 08:09 Constitutional: Yes: Well Nourished, No Distress, Calm Eyes: Yes: Conjunctiva Clear, EOM Intact HENT: Yes: Atraumatic, Normocephalic Neck: Yes: Supple, Trachea Midline Respiratory: Yes: Regular, CTA Bilaterally Gastrointestinal: Yes: Normal Bowel Sounds, Soft Cardiovascular: Yes: Bradycardia JVD: No Carotid Bruit: No PMI: Non-Displaced Heart Sounds: Yes: S1, S2 Murmur: No: Systolic Murmur Musculoskeletal: No: Joint Swelling Extremities: No: Cold Edema: No Peripheral Pulses WNL: Yes Peripheral Pulses: 2+ Left Doralis Pedis, 2+ Right Dorsalis Pedis Integumentary: No: Jaundice Neurological: Yes: Alert, Oriented Psychiatric: No: Agitated - Other Data Labs, Other Data: CBC, BMP 04/28/19 07:29 04/28/19 07:29 INR, PTT INR 1.25 (0.82-1.09) H 04/28/19 07:29 Troponin, BNP 04/27/19 04/27/19 04/27/19 14:26 14:26 15:30 Troponin I Cancelled < 0.03 B-Natriuretic Peptide Cancelled 04/27/19 04/28/19 04/28/19 22:40 03:40 03:40 Troponin I < 0.03 Cancelled 0.03 B-Natriuretic Peptide Troponin, BNP 04/27/19 04/27/19 04/27/19 14:26 14:26 15:30 Troponin I Cancelled < 0.03 B-Natriuretic Peptide Cancelled 04/27/19 04/28/19 04/28/19 22:40 03:40 03:40 Troponin I < 0.03 Cancelled 0.03 B-Natriuretic Peptide Assessment/Plan EKG: sinus tamara, no ischemic changes tele: sinus, sinus tamara syncope - trops neg x 2, EKG no ischemic changes - monitoring on tele, no events - neuro consulted - echo, carotid ultrasound pending - if benign findings no further inpatient testing sinus tamara - stable compared to prior - continue metoprolol HTN - stable on current meds, continue back pain - manage per primary
[2019-04-28] MEDS: DOCUSATE SODIUM 100 MG CAPSULE (FP) PO SCH (09:46)
[2019-04-28] MEDS: RANITIDINE HCL 150 MG TABLET (FP) PO SCH (09:46)
[2019-04-28] MEDS ORDERED: METHENAMINE HIPPURATE PO SCH (10:00)
[2019-04-28] MEDS ORDERED: LIDOCAINE 5% TOPICAL PATCH TP SCH (10:00)
--- NOTE | 2019-04-28 12:21 | EKG ---
Test Reason : Blood Pressure : / mmHG Vent. Rate : 054 BPM Atrial Rate : 054 BPM P-R Int : 162 ms QRS Dur : 076 ms QT Int : 422 ms P-R-T Axes : 047 048 015 degrees QTc Int : 400 ms POOR DATA QUALITY, INTERPRETATION MAY BE ADVERSELY AFFECTED SINUS BRADYCARDIA T WAVE ABNORMALITY, CONSIDER ANTERIOR ISCHEMIA ABNORMAL ECG Confirmed by MD JANNA, BENJAMIN ([id number]) on 04/28/2019 12:21:15 PM Referred By: Confirmed By:BENJAMIN SALDIVAR MD
[2019-04-28 14:14] VITALS: BP 131/74; PULSE 63; TEMP 98
--- NOTE | 2019-04-28 14:40 | ECHO ---
Version: 1 Name: ADONIS HERRERA Exam: Adult Echocardiogram Study Date: 04/28/2019, 2:04 PM Age: 79 Years MMode/2D Measurements & Calculations IVSd: 1.05 cm LVIDs: 2.23 cm LVIDd: 4.0 cm LVPWd: 1.08 cm LVOT diam: 1.98 cm Ao root diam: 2.5 cm LA dimension: 3.9 cm Doppler Measurements & Calculations MV E max clyde: 102.0 cm/sec MV A max clyde: 60.4 cm/sec MV E/A: 1.69 MR max P.4 mmHg Ao max P.4 mmHg Ao V2 max: 190.0 cm/sec PI end-d clyde: 117.8 cm/sec TR max clyde: 247.3 cm/sec TR max P.5 mmHg Left Ventricle The left ventricular size, thickness and function are normal. Ejection Fraction = 70. Left Ventricul ar Filling pattern is normal for age. Right Ventricle The right ventricle is normal in size and function. Atria The left atrial size is normal. The right atrium is mildly dilated. Mitral Valve The mitral valve leaflets appear normal. There is no evidence of stenosis, fluttering, or prolapse. There is trace mitral regurgitation. Tricuspid Valve The tricuspid valve is normal. There is mild tricuspid regurgitation. Aortic Valve The aortic valve is normal in structure and function. Pulmonic Valve The pulmonic valve leaflets are thin and pliable; valve motion is normal. Great Vessels The aortic root is normal size. Normal aortic arch, descending and ascending aorta. Pericardium/Pleura There is no pericardial effusion. Summary Statements The left ventricular size, thickness and function are normal Ejection Fraction = 70. Left Ventricular Filling pattern is normal for age. The right ventricle is normal in size and function. The left atrial size is normal. The right atrium is mildly dilated. The mitral valve leaflets appear normal. There is no evidence of stenosis, fluttering, or prolapse. There is trace mitral regurgitation. The tricuspid valve is normal. There is mild tricuspid regurgitation. The aortic valve is normal in structure and function. The pulmonic valve leaflets are thin and pliable; valve motion is normal. The aortic root is normal size. Normal aortic arch, descending and ascending aorta There is no pericardial effusion. Hamilton Branham 04/28/2019, 1:39 PM Ordering Physician: Emily Rueda Performed By: Ninfa Carnes
--- NOTE | 2019-04-28 15:06 | DS ---
Physical Exam: SUBJECTIVE: Patient seen and examined oob to chair. Mild pain to right side of neck. No recurrence of dizziness, lightheadedness. OBJECTIVE: Vital Signs Period Temp Pulse Resp BP Sys/Szymanski Pulse Ox Last 24 Hr 98.0 F-98.6 F 51-84 16-18 109-150/55-74 95-100 PHYSICAL EXAM GENERAL: The patient is awake, alert, and fully oriented, in no acute distress. LUNGS: Breath sounds equal, clear to auscultation bilaterally, no wheezes, no crackles, no accessory muscle use. HEART: Regular rate and rhythm, S1, S2 ABDOMEN: Soft, nontender, nondistended EXTREMITIES: 2+ pulses, warm, well-perfused, no edema. NEUROLOGICAL: Cranial nerves II through XII grossly intact. Normal speech LABS Laboratory Results - last 24 hr 04/27/19 04/27/19 04/27/19 14:26 14:26 15:30 WBC RBC Hgb Hct MCV MCH MCHC RDW Plt Count MPV Absolute Neuts (auto) Neutrophils % Lymphocytes % Monocytes % Eosinophils % Basophils % PT with INR INR PTT (Actin FS) Sodium Cancelled Potassium Cancelled Chloride Cancelled Carbon Dioxide Cancelled Anion Gap Cancelled BUN Cancelled Creatinine Cancelled Est GFR (CKD-EPI)AfAm Cancelled Est GFR (CKD-EPI)NonAf Cancelled Random Glucose Cancelled Calcium Cancelled Phosphorus Magnesium Total Bilirubin Cancelled AST Cancelled ALT Cancelled Alkaline Phosphatase Cancelled Creatine Kinase Cancelled Troponin I Cancelled < 0.03 Total Protein Cancelled Albumin Cancelled Triglycerides Cholesterol Total LDL Cholesterol HDL Cholesterol TSH 04/27/19 04/27/19 04/28/19 15:30 22:40 03:40 WBC RBC Hgb Hct MCV MCH MCHC RDW Plt Count MPV Absolute Neuts (auto) Neutrophils % Lymphocytes % Monocytes % Eosinophils % Basophils % PT with INR INR PTT (Actin FS) Sodium 137 Potassium 4.3 Chloride 101 Carbon Dioxide 23 Anion Gap 13 BUN 12.0 Creatinine 0.8 Est GFR (CKD-EPI)AfAm 80.14 Est GFR (CKD-EPI)NonAf 69.14 Random Glucose 118 H Calcium 9.2 Phosphorus Magnesium Total Bilirubin 1.0 AST 19 ALT 15 Alkaline Phosphatase 64 Creatine Kinase 46 Troponin I < 0.03 Cancelled Total Protein 7.4 Albumin 4.0 Triglycerides Cholesterol Total LDL Cholesterol HDL Cholesterol TSH 06/04/28/19 04/28/19 03:40 07:29 07:29 WBC 5.9 RBC 3.96 Hgb 12.4 Hct 37.3 D MCV 94.2 MCH 31.4 MCHC 33.3 RDW 13.6 Plt Count 178 MPV 8.0 Absolute Neuts (auto) 3.3 Neutrophils % 55.8 Lymphocytes % 28.4 Monocytes % 13.7 H Eosinophils % 1.9 Basophils % 0.2 PT with INR INR PTT (Actin FS) Sodium 139 Potassium 4.0 Chloride 106 Carbon Dioxide 25 Anion Gap 8 BUN 14.0 Creatinine 0.9 Est GFR (CKD-EPI)AfAm 69.50 Est GFR (CKD-EPI)NonAf 59.96 Random Glucose 97 Calcium 8.3 L Phosphorus 2.8 Magnesium 1.8 Total Bilirubin 0.9 AST 13 L ALT 11 L Alkaline Phosphatase 48 D Creatine Kinase Troponin I 0.03 Total Protein 5.8 L Albumin 3.2 L Triglycerides Cholesterol Total LDL Cholesterol HDL Cholesterol TSH 0.79 04/28/19 04/28/19 07:29 07:29 WBC RBC Hgb Hct MCV MCH MCHC RDW Plt Count MPV Absolute Neuts (auto) Neutrophils % Lymphocytes % Monocytes % Eosinophils % Basophils % PT with INR 13.9 H INR 1.25 H PTT (Actin FS) 31.1 Sodium Potassium Chloride Carbon Dioxide Anion Gap BUN Creatinine Est GFR (CKD-EPI)AfAm Est GFR (CKD-EPI)NonAf Random Glucose Calcium Phosphorus Magnesium Total Bilirubin AST ALT Alkaline Phosphatase Creatine Kinase Troponin I Total Protein Albumin Triglycerides 23 Cholesterol 155 Total LDL Cholesterol 66 HDL Cholesterol 84 H TSH Date of Admission:04/27/19 Date of Discharge: 04/28/19 Pre hospital course 79 year-old female with PMH significant for HTN, asthma, GERD, and degenerative disc disease. Presented to the ED for evaluation of neck pain after experiencing a syncopal episode two days before. Ms. Sanders reported rising from her dining room chair to recycle the newspaper she had read, when she experienced a syncopal episode while bending forward to place her paper into the recycle bin. Her son heard the loud "bang" came to her assistance. Per her report, she had only lost consciousness of "a few seconds". She denies chest pain, SOB, palpitations, but admits to feeling extremely weak prior to syncopizing. Over the past two days she has had neck pain from the fall. Hospital course Syncope --no cardiac history --troponins neg x 3 --ECG not suggestive of ischemic event --telemetry no events --CXR unremarkable --Echo: LV normal, EF 70%; RV normal; CHARLIE; trace MR; mild TR --US carotids: unremarkable --seen and evaluated by cardiology, no further inpatient workup --seen and evaluated by neuro, no further inpatient workup Neck pain --s/p fall, muscle spasm --CT c-spine: no fractures --Tylenol PRN Hypertension --BP stable --continue metoprolol Sinus bradycardia --stable --continued metoprolol Asthma --duonebs PRN GERD --Zantac Minutes to complete discharge: 35 Discharge Summary Reason For Visit: SYNCOPE Current Active Problems Cervicalgia (Acute) Prophylactic measure (Acute) Syncope (Acute) Condition: Improved - Instructions Diet, Activity, Other Instructions: It is recommended you follow up with your primary care provider Dr. Sanon within one week of your discharge. Referrals: Jose Sanon MD [Staff Physician] - 1 Week Disposition: HOME - Home Medications Comprehensive Discharge Medication List: Ambulatory Orders Metoprolol Tartrate [Lopressor -] 75 mg PO HS 02/03/15 Ranitidine HCl [Zantac] 150 mg PO BID 02/03/15 Methenamine Hippurate [Hiprex [Nf] -] 0.5 tab PO DAILY 03/31/17 Docusate Sodium [Colace -] 100 mg PO BID cap 04/05/17 Solifenacin Succinate [Vesicare -] 5 mg PO DAILY 12/26/18 This patient is new to me today: Yes Date on this admission: 04/28/19 Emergency Visit: Yes ED Registration Date: 04/27/19 Care time: The patient presented to the Emergency Department on the above date and was hospitalized for further evaluation of their emergent condition. Critical Care patient: No - Discharge Referral Referred to [facility] Med P.C.: No
[2019-04-28] MEDS ORDERED: ALBUTEROL SO4 2.5/IPRATROPIUM 0.5 INH SOL 3 ML VIAL.NEB. NEB ONE (15:22)
== END 2019-04-28 16:32 | disposition home or self-care (01) ==
LOC: FER 13:29 → FM/S 17:01
PROVIDERS: ADMIT Internal Medicine; ATTEND Nurse Practitioner Acute Care
PROC: 3E013GC Introduction of Other Therapeutic Substance into Subcutaneous Tissue, Percutaneous Approach (ICD-10-PCS; principal; 2019-04-27)
PROC: 3E0F7GC Introduction of Other Therapeutic Substance into Respiratory Tract, Via Natural or Artificial Opening (ICD-10-PCS; 2019-04-27)
DX: R55 Syncope and collapse (principal); I10 Essential (primary) hypertension; I34.1 Nonrheumatic mitral (valve) prolapse; K21.9 Gastro-esophageal reflux disease without esophagitis; E78.5 Hyperlipidemia, unspecified; M54.5 Low back pain; G89.29 Other chronic pain; M51.26 Other intervertebral disc displacement, lumbar region; K59.00 Constipation, unspecified; R00.1 Bradycardia, unspecified; Z85.42 Personal history of malignant neoplasm of other parts of uterus; Z29.9 Encounter for prophylactic measures, unspecified; Z87.440 Personal history of urinary (tract) infections; Z91.013 Allergy to seafood; Z88.1 Allergy status to other antibiotic agents; Z88.8 Allergy status to other drugs, medicaments and biological substances
CPT/HCPCS: 36415; 70450-TC; 71046-TC-FY; 72125-TC; 73030-TC-LT-FY; 80053; 80061; 82550; 83735; 84100; 84443; 84484; 85025; 85610; 85730; 93005; 93306-TC; 93880-TC; 94640; 96372; 97116-GP; 97161-GP; 99285-25; G0378; J1644

== ENCOUNTER 2019-06-08 08:49 | Day surgery (SDC) | payer OTHER, MEDICARE ==
[2019-06-05 15:27] VITALS: BMI 33.3
[2019-06-08 09:27] LABS: BASO % 0.6 % (0-2.0); EOS % 4.7 % (0-4.5); HEMATOCRIT 37.6 % (32.4-45.2); HEMOGLOBIN 12.7 GM/dL (10.7-15.3); LYMPH % 35.9 % (8-40); MCH 31.8 pg (25.7-33.7); MCHC 33.6 g/dl (32.0-36.0); MEAN CELL VOLUME 94.6 fl (80-96); MEAN PLT VOLUME 7.5 fl (7.5-11.1); MONO % 10.9 % (3.8-10.2); NEUT % 47.9 % (42.8-82.8); PLATELET COUNT 189 K/MM3 (134-434); RBC 3.97 M/mm3 (3.60-5.2); RDW 15.3 % (11.6-15.6); WHITE BLOOD COUNT 4.2 K/mm3 (4.0-10.0)
[2019-06-08 09:41] LABS: INR 1.06 (0.83-1.09); PROTHROMBIN TIME (PATIENT) 12.5 SEC (9.7-13.0)
[2019-06-08 13:16] VITALS: TEMP 97.5
[2019-06-08 15:15] VITALS: BP 149/77; PULSE 53
--- NOTE | 2019-06-10 14:08 | PATH ---
Surgical Pathology Report Patient Name: ADONIS HERRERA [facility]. Rec. #: [id number] /Age/Gender: 1940 (Age: 79) / F Account: [id number] Location: RADIOLOGY INTER Taken: 06/08/2019 Received: 06/08/2019 Reported: 06/10/2019 Physicians: Simeon Jung M.D. Specimen(s) Received RIGHT UPPER LUNG Clinical History Right upper lobe lung mass and PET+ CT Final Diagnosis LUNG, RIGHT, UPPER LOBE, CT GUIDED CORE BIOPSY: ADENOCARCINOMA, WELL DIFFERENTIATED. Comment: Predominantly lepidic and focal acinar forms present. Immunohistochemical stains performed and interpreted at [facility] show the malignant cells are highlighted by TTF-1. Focal weak patchy staining with p63 is noted. Additional immunohistochemical stains performed at [place], [place] ([id number]) and interpreted at [facility] show the tumor is positive for Napsin A, while negative for p40. This immunophenotype supports the above diagnosis. Office of Dr. Horvath informed that significant findings will be faxed (Norma). Positive and negative controls (internal if applicable) show appropriate results. Electronically Signed Asia Arceo M.D. Gross Description Received in formalin labeled "right lung biopsy," are 4 abbin, cylindrical portions of soft tissue ranging from 0.4-0.6 cm in length and averaging 0.1 cm in diameter. The specimens are submitted in toto in one cassette. /06/08/2019 saudi06/08/2019
== END 2019-06-08 14:40 | disposition home or self-care (01) ==
LOC: JRADIR 08:49
PROVIDERS: ATTEND Specialist
PROC: BW24ZZZ Computerized Tomography (CT Scan) of Chest and Abdomen (ICD-10-PCS; principal; 2019-06-08)
DX: C34.11 Malignant neoplasm of upper lobe, right bronchus or lung (principal)
CPT/HCPCS: 32405; 36415; 71045-TC-FY; 77012-TC; 85025; 85610; 88305-TC; 88341-TC; 88342-TC

== ENCOUNTER 2019-12-30 13:35 | Emergency (ER) | payer OTHER, MEDICARE ==
[2019-12-30 13:51] VITALS: BP 154/86; PULSE 61; TEMP 97.3; BMI 31.8
[2019-12-30] MEDS ORDERED: DIPHTH,PERTUSS(ACELL),TET 0.5 ML DISP.SYRIN IM ONE ×2 (14:10→14:14)
--- NOTE | 2019-12-30 14:10 | PDOC ---
History of Present Illness - General Chief Complaint: Injury Stated Complaint: LEFT 2ND FINGER LACERATION Time Seen by Provider: 12/30/19 13:58 History Source: Patient Exam Limitations: No Limitations - History of Present Illness Initial Comments: 12/30/19 14:22 79 yo F with a hx of HTN, recently treated lung CA stage 1, hx of uterine cancer s/p hysterectomy, asthma, and denies use of anticoagulation and antiplatelet medications presents to the emergency department with laceration to the index left finger. Per the patient, she was cutting a yam with her paring knife (Straight edge) when she accidentally cut the distal portion of the left 2nd digit. She denies purulent discharge in the wound. Per the patient , she undressed the wound and noted it was bleeding extensively. Denies the following: fevers, sensation deficit, chest pain, SOB, rash, erythema, warm to the touch at the injury site, abdominal pain, and nausea/vomiting. The patient is unable to recall her last tetanus shot. Past History - Past Medical History Allergies/Adverse Reactions: Allergies Allergy/AdvReac Type Severity Reaction Status Date / Time naproxen Allergy Intermediate Verified 12/30/19 13:44 minocycline HCl Allergy Mild Verified 12/30/19 13:44 [From Minocin] Shellfish Allergy Mild GI UPSET Verified 12/30/19 13:44 levofloxacin [From Levaquin] AdvReac Intermediate Nausea Verified 12/30/19 13:44 Home Medications: Ambulatory Orders Budesonide/Formeterol Fumarate [SYMBICORT 80/4.5mcg -] 1 inh PO DAILY 12/30/19 Famotidine [Pepcid] 20 mg PO DAILY 12/30/19 Methenamine Hippurate [Hiprex [Nf] -] 500 gm PO DAILY 12/30/19 Metoprolol Succinate 75 mg PO DAILY 12/30/19 Tiotropium [place] [Spiriva Respimat] 1 spray IH DAILY 12/30/19 Anemia: No Asthma: Yes Cancer: Yes (uterine, lung) Cardiac Disorders: Yes (MITRAL VALVE PROLAPSE) CVA: No COPD: No CHF: No Dementia: No Diabetes: No GI Disorders: Yes (GERD) Disorders: Yes (HX UTI) HTN: Yes Hypercholesterolemia: Yes Liver Disease: No Seizures: No Thyroid Disease: No - Surgical History Abdominal Surgery: Yes Appendectomy: Yes (1961) Cardiac Surgery: No Cholecystectomy: No Lung Surgery: No Neurologic Surgery: No Orthopedic Surgery: Yes (RIGHT ROATATOR CUFF REPAIR-1993) - Psycho Social/Smoking Cessation Hx Smoking Status: Yes Smoking History: Never smoked Have you smoked in the past 12 months: No Number of Cigarettes Smoked Daily: 20 If you are a former smoker, when did you quit?: 1989 Information on smoking cessation initiated: No Hx Alcohol Use: ("weekly") Drug/Substance Use Hx: No Substance Use Type: None Hx Substance Use Treatment: No Review of Systems - Review of Systems Able to Perform ROS?: Yes Is the patient limited [place] proficient: No Constitutional: No: Chills, Diaphoresis, Fever, Weakness HEENTM: No: Eye Pain, Ear Pain, Nose Pain, Throat Pain Respiratory: No: Cough, Shortness of Breath Cardiac (ROS): No: Chest Pain, Palpitations ABD/GI: No: Constipated, Diarrhea, Nausea, Rectal Bleeding, Vomiting, Tarry Stools : No: Burning, Dysuria, Hematuria Musculoskeletal: No: Joint Pain Integumentary: Yes: Lesions (laceration). No: Bruising, Erythema Neurological: No: Headache, Paresthesia Endocrine: No: Unexplained Weight Loss Hematologic/Lymphatic: No: Anemia *Physical Exam - Vital Signs Last Vital Signs Temp Pulse Resp BP Pulse Ox 97.3 F L 61 18 154/86 96 12/30/19 13:35 12/30/19 13:35 12/30/19 13:35 12/30/19 13:35 12/30/19 13:35 - Physical Exam General Appearance: Yes: Nourished, Appropriately Dressed. No: Apparent Distress, Intoxicated HEENT: positive: EOMI, JEREMIAH, Normal Voice, Symmetrical, Pharynx Normal. negative: Pale Conjunctivae, Scleral Icterus (R), Scleral Icterus (L), Muffled/ Hoarse voice Neck: positive: Trachea midline, Supple. negative: Tender Respiratory/Chest: positive: Lungs Clear, Normal Breath Sounds. negative: Chest Tender, Respiratory Distress, Accessory Muscle Use Cardiovascular: positive: Regular Rhythm, Regular Rate, S1, S2. negative: Systolic Murmur Gastrointestinal/Abdominal: positive: Normal Bowel Sounds, Flat, Soft. negative : Tender Lymphatic: negative: Adenopathy Musculoskeletal: positive: Normal Inspection. negative: CVA Tenderness, Vertebral Tenderness Extremity: positive: Normal Capillary Refill, Normal Range of Motion, Other (1 cm avulsion laceration in the ventral aspect of the distal phalnx 2nd digit of left hand. no loss of sensation. no red streaks or purulence noted. clean borders without retention of foreign bodies). negative: Normal Inspection Integumentary: positive: Normal Color, Dry Neurologic: positive: Alert, Normal Mood/Affect Medical Decision Making - Medical Decision Making 79 yo F with a hx of HTN, recently treated lung CA stage 1, hx of uterine cancer s/p hysterectomy, asthma, and denies use of anticoagulation and antiplatelet medications presents to the emergency department with laceration to the index left finger. Initial vitals: Initial Vital Signs Temp Pulse Resp BP Pulse Ox 97.3 F L 61 18 154/86 96 12/30/19 13:35 12/30/19 13:35 12/30/19 13:35 12/30/19 13:35 12/30/19 13:35 Work up: laceration to the left 2nd digit at the distal phalanx. no foreign body appreciated on examination. Patient will receive tetanus booster and steri stripes applied. Patient given strict return precautions Dispo: Discharge Discharge - Discharge Information Problems reviewed: Yes Clinical Impression/Diagnosis: Finger laceration Condition: Stable Disposition: HOME - Admission No - Follow up/Referral Referrals: Jose Sanon MD [Primary Care Provider] - - Patient Discharge Instructions Patient Printed Discharge Instructions: DI for Laceration Repair Steri-Strips, DI for Laceration Repair -- Finger Additional Instructions: You were seen in the emergency department for your laceration. Please follow up with your primary medical doctor within 1 week after discharge for wound check. Please have your wound checked by them within this time period, especially within 4 days. Please return to the emergency department if you have worsening pain in the region and if you have purulent discharge, red streaks going up to the wrist, and warmth to the area. Thank you. - Post Discharge Activity
--- NOTE | 2019-12-30 15:12 | PDOC ---
Attending Attestation - Resident Resident Name: LouiseCorey - ED Attending Attestation I have performed the following: I have examined & evaluated the patient, The case was reviewed & discussed with the resident, I agree w/resident's findings & plan, Exceptions are as noted - HPI HPI: 12/30/19 15:10 Cut tip of finger with a knife last night. No pain. No numbness. Small amount of bleeding this morning when she remove the bandage. - Physicial Exam PE: 12/30/19 15:11 Superficial skin flap type laceration of the distal pulp, not involving the nail , and distant from the joint. Approximately 5 mm in size. Wide pedicle. Only the epidermis is lacerated, there is good coverage of the bone with soft tissue. - Medical Decision Making 12/30/19 15:11 Assessment: Superficial laceration, no active bleeding now. No sign of infection Plan: Wound was soaked and irrigated with saline, hemostasis with pressure, Steri-Strips applied with good edge approximation. Bandage. Rest and elevation. Wound care and follow-up if there is any sign of persistent bleeding or infection. May return to ER or see primary physician.
== END 2019-12-30 14:35 | disposition home or self-care (01) ==
LOC: FER 13:35
PROC: 3E0234Z Introduction of Serum, Toxoid and Vaccine into Muscle, Percutaneous Approach (ICD-10-PCS; principal; 2019-12-30)
DX: S61.211A Laceration without foreign body of left index finger without damage to nail, initial encounter (principal); W26.0XXA Contact with knife, initial encounter; Y93.G1 Activity, food preparation and clean up; Y92.9 Unspecified place or not applicable; Z88.8 Allergy status to other drugs, medicaments and biological substances; Z91.013 Allergy to seafood; Z85.118 Personal history of other malignant neoplasm of bronchus and lung; I10 Essential (primary) hypertension; Z87.891 Personal history of nicotine dependence; J45.909 Unspecified asthma, uncomplicated; I51.9 Heart disease, unspecified; K21.9 Gastro-esophageal reflux disease without esophagitis; E78.00 Pure hypercholesterolemia, unspecified
CPT/HCPCS: 90715; 99282-25

== ENCOUNTER 2021-02-06 10:37 | Emergency (ER) | payer OTHER, MEDICARE ==
[2021-02-06 10:44] VITALS: BMI 33.3
[2021-02-06] MEDS ORDERED: LIDOCAINE 5% TOPICAL PATCH TP ONE (11:28)
[2021-02-06] MEDS ORDERED: LIDOCAINE 5% TOPICAL PATCH ONE (12:41)
[2021-02-06 12:55] LABS: BASO % 0.6 % (0-2.0); EOS % 2.2 % (0-4.5); HEMATOCRIT 40.4 % (32.4-45.2); HEMOGLOBIN 13.3 GM/dl (10.7-15.3); LYMPH % 26.6 % (8-40); MCH 31.2 pg (25.7-33.7); MEAN CELL VOLUME 94.5 fl (80-96); MEAN PLT VOLUME 7.6 fl (7.5-11.1); MONO % 11.1 % (3.8-10.2); NEUT % 59.5 % (42.8-82.8); PLATELET COUNT 179 K/MM3 (134-434); RBC 4.27 M/mm3 (3.60-5.2); RDW 13.9 % (11.6-15.6); WHITE BLOOD COUNT 5.2 K/mm3 (4.0-10.8)
[2021-02-06 12:59] LABS: ALBUMIN 3.6 g/dl (3.4-5.0); BILIRUBIN,TOTAL 0.7 mg/dl (0.2-1); CALCIUM 8.9 mg/dl (8.5-10); CREATININE 0.8 mg/dl (0.55-1.3); MAGNESIUM 2.1 mg/dL (1.8-2.4); POTASSIUM 4.4 mmol/L (3.5-5.1); TOT PROT 6.5 g/dl (6.4-8.2)
[2021-02-06 13:00] LABS: INR 1.05 (0.82-1.09); PROTHROMBIN TIME (PATIENT) 11.7 SEC (10.2-13.0)
[2021-02-06] MEDS ORDERED: SODIUM CHLORIDE 500 ML IV STA (13:53)
[2021-02-06 13:57] LABS: N-TERMINAL BNP 482.7 pg/ml (5-450)
[2021-02-06 15:01] VITALS: BP 140/80; PULSE 60; TEMP 98.3
[2021-02-06] MEDS ORDERED: ACETAMINOPHEN 325 MG TABLET (FP) PO ONE (15:36)
[2021-02-06] MEDS ORDERED: ACETAMINOPHEN 325 MG TABLET (FP) ONE (15:36)
[2021-02-06] MEDS ORDERED: LIDOCAINE PATCH REMOVAL MC SCH (22:00)
== END 2021-02-06 16:05 | disposition home or self-care (01) ==
LOC: FER 10:37
PROC: 3E0337Z Introduction of Electrolytic and Water Balance Substance into Peripheral Vein, Percutaneous Approach (ICD-10-PCS; principal; 2021-02-06)
DX: R10.9 Unspecified abdominal pain (principal)
CPT/HCPCS: 36415; 71046-TC-FY; 71275-TC; 80053; 81003; 82550; 83735; 83880; 84484; 85025; 85610; 93005; 93971-TC; 99285-25; Q9967

== ENCOUNTER 2022-04-13 12:50 | Observation (INO) | payer OTHER, MEDICARE ==
[2022-04-13] MEDS ORDERED: SODIUM CHLORIDE 0.9% 500 ML INFUS.BAG IV ONE (13:46)
[2022-04-13 14:27] LABS: HEMATOCRIT 40.8 % (32.4-45.2); MCH 31.2 pg (25.7-33.7); MCHC 34.3 g/dl (32.0-36.0); MEAN PLT VOLUME 7.6 fl (7.5-11.1); PLATELET COUNT 219.5 10^3/uL (134-434); RBC 4.48 10^6/uL (3.60-5.2); RDW 15.2 % (11.6-15.6); WHITE BLOOD COUNT 6.5 10^3/uL (4.0-10.8)
[2022-04-13 14:28] LABS: ALBUMIN 3.8 g/dl (3.4-5.0); BILIRUBIN,TOTAL 0.9 mg/dl (0.2-1); CALCIUM 9.2 mg/dl (8.5-10); CREATININE 0.9 mg/dl (0.55-1.3); MAGNESIUM 1.9 mg/dL (1.8-2.4); TOT PROT 6.5 g/dl (6.4-8.2)
[2022-04-13 15:02] LABS: EPITHELIAL CELLS RARE /hpf
[2022-04-13 18:05] VITALS: BMI 34.0
[2022-04-13] MEDS ORDERED: ACETAMINOPHEN 500 MG TABLET (FP) PO ONE (21:25)
[2022-04-13] MEDS: FAMOTIDINE 20 MG TABLET PO SCH (21:34)
[2022-04-13] MEDS: DOCUSATE SODIUM 100 MG CAPSULE (FP) PO PRN (21:34)
[2022-04-14 08:18] LABS: CALCIUM 8.7 mg/dl (8.5-10); CREATININE 0.8 mg/dl (0.55-1.3); HEMATOCRIT 36.3 % (32.4-45.2); HEMOGLOBIN 12.4 G/dL (10.7-15.3); MCH 31.7 pg (25.7-33.7); MCHC 34.2 g/dl (32.0-36.0); MEAN CELL VOLUME 92.5 fl (80-96); MEAN PLT VOLUME 7.5 fl (7.5-11.1); PLATELET COUNT 176.5 10^3/uL (134-434); RBC 3.92 10^6/uL (3.60-5.2); RDW 15.7 % (11.6-15.6); WHITE BLOOD COUNT 4.4 10^3/uL (4.0-10.8)
[2022-04-14] MEDS ORDERED: BISACODYL 10 MG SUPP.RECT PR PRN (09:59)
[2022-04-14] MEDS ORDERED: SENNOSIDES 8.6MG TABLET (FP) PO PRN (09:59)
[2022-04-14] MEDS: POLYETHYLENE GLYCOL 3350 119 GM BTL PO SCH (10:33)
[2022-04-14] MEDS: METOPROLOL TARTRATE 25 MG TABLET (FP) PO SCH ×3 (10:33→21:14)
[2022-04-14] MEDS: TIOTROPIUM BROMIDE 2.5 MCG (SPIRIVA) RESPIMAT INHALER IH SCH (10:34)
[2022-04-14] MEDS: LOSARTAN POTASSIUM 50 MG TABLET PO SCH (16:21)
[2022-04-14] MEDS ORDERED: ACETAMINOPHEN 500 MG TABLET (FP) PO ONE (21:11)
[2022-04-14] MEDS: DOCUSATE SODIUM 100 MG CAPSULE (FP) PO PRN (21:12)
[2022-04-14] MEDS: FAMOTIDINE 20 MG TABLET PO SCH (21:12)
[2022-04-14] MEDS: HEPARIN NA (PORCINE) 5,000 UNITS/ML 1ML VIAL SQ SCH (21:14)
[2022-04-15 08:03] LABS: HEMOGLOBIN 12.9 G/dL (10.7-15.3); MCH 31.4 pg (25.7-33.7); MEAN CELL VOLUME 92.5 fl (80-96); MEAN PLT VOLUME 7.6 fl (7.5-11.1); PLATELET COUNT 185.6 10^3/uL (134-434); RBC 4.11 10^6/uL (3.60-5.2); RDW 15.7 % (11.6-15.6); WHITE BLOOD COUNT 5.2 10^3/uL (4.0-10.8)
[2022-04-15] MEDS: DOCUSATE SODIUM 100 MG CAPSULE (FP) PO PRN (08:37)
[2022-04-15 08:54] LABS: CALCIUM 8.8 mg/dl (8.5-10); CREATININE 0.9 mg/dl (0.55-1.3)
[2022-04-15 08:55] LABS: ANISOCYTOSIS 1+
[2022-04-15 08:58] LABS: CHOLESTEROL 207 mg/dl (50-200); HDL CHOLESTEROL 98 mg/dl (40-60); LDL CHOLESTEROL (ONLY DFH) 101 mg/dl (5-100); TRIGLYCERIDES 42 mg/dl (0-150)
[2022-04-15] MEDS ORDERED: metoPROLOL SUCCINATE 25 MG TAB.SR.24H (FP) PO SCH ×2 (10:00)
[2022-04-15] MEDS: LOSARTAN POTASSIUM 50 MG TABLET PO SCH (10:01)
[2022-04-15] MEDS: HEPARIN NA (PORCINE) 5,000 UNITS/ML 1ML VIAL SQ SCH (10:01)
[2022-04-15] MEDS: POLYETHYLENE GLYCOL 3350 119 GM BTL PO SCH (10:04)
[2022-04-15] MEDS: TIOTROPIUM BROMIDE 2.5 MCG (SPIRIVA) RESPIMAT INHALER IH SCH (10:05)
[2022-04-15] MEDS ORDERED: SIMETHICONE 80 MG TAB.CHEW (FP) PO ONE (10:53)
[2022-04-15] MEDS ORDERED: ACETAMINOPHEN WITH CODEINE 300MG/30MG TABLET PO ONE (10:53)
[2022-04-15] MEDS ORDERED: FAMOTIDINE 10 MG TABLET PO ONE (10:53)
[2022-04-15 14:01] VITALS: BP 147/79; PULSE 62; TEMP 98.1
== END 2022-04-15 14:00 | disposition home or self-care (01) ==
LOC: FER 12:50 → FM/S 13:22 → INTOOBSV 13:22 → FM/S 16:46
PROVIDERS: ADMIT Internal Medicine; ATTEND Internal Medicine
PROC: 3E023GC Introduction of Other Therapeutic Substance into Muscle, Percutaneous Approach (ICD-10-PCS; principal; 2022-04-13)
PROC: 3E023GC Introduction of Other Therapeutic Substance into Muscle, Percutaneous Approach (ICD-10-PCS; 2022-04-13)
PROC: 3E0337Z Introduction of Electrolytic and Water Balance Substance into Peripheral Vein, Percutaneous Approach (ICD-10-PCS; 2022-04-13)
DX: R55 Syncope and collapse (principal); I10 Essential (primary) hypertension; R01.1 Cardiac murmur, unspecified; E78.5 Hyperlipidemia, unspecified; I34.1 Nonrheumatic mitral (valve) prolapse; K21.9 Gastro-esophageal reflux disease without esophagitis; K59.00 Constipation, unspecified; M54.9 Dorsalgia, unspecified; J45.909 Unspecified asthma, uncomplicated; N39.0 Urinary tract infection, site not specified; M54.59 Other low back pain; G89.29 Other chronic pain; Z87.891 Personal history of nicotine dependence; Z90.79 Acquired absence of other genital organ(s); R77.8 Other specified abnormalities of plasma proteins; Z88.8 Allergy status to other drugs, medicaments and biological substances; Z91.013 Allergy to seafood; Z85.118 Personal history of other malignant neoplasm of bronchus and lung; Z20.822 Contact with and (suspected) exposure to COVID-19; Z85.42 Personal history of malignant neoplasm of other parts of uterus; Z29.8 Encounter for other specified prophylactic measures; D64.9 Anemia, unspecified
CPT/HCPCS: 36415; 70450-TC; 71045-TC-FY; 80048; 80053; 80061; 81003; 81015; 82550; 82553; 83036; 83735; 84484; 85025; 85027; 87077; 87086; 87186; 93005; 96372; 99285-25; C9803-CS; G0378; J1644; U0003; U0005

== ENCOUNTER 2022-04-16 10:43 | Emergency (ER) | payer OTHER, MEDICARE ==
[2022-04-16 11:00] VITALS: BP 144/82; PULSE 59; TEMP 98.6; BMI 33.5
[2022-04-16] MEDS ORDERED: ACETAMINOPHEN 325 MG TABLET (FP) PO ONE (11:22)
[2022-04-16] MEDS ORDERED: ACETAMINOPHEN 325 MG TABLET (FP) ONE (11:25)
[2022-04-16] MEDS ORDERED: CYCLOBENZAPRINE HCL 5 MG TABLET ONE (11:26)
[2022-04-16] MEDS ORDERED: CYCLOBENZAPRINE HCL 5 MG TABLET PO SCH (11:30)
== END 2022-04-16 13:05 | disposition home or self-care (01) ==
LOC: FER 10:43
DX: M79.10 Myalgia, unspecified site (principal)
CPT/HCPCS: 71250-TC; 93005; 93010; 99284-25

== ENCOUNTER 2023-01-11 04:04 | Day surgery (SDC) | payer OTHER, MEDICARE ==
[2023-01-07 15:26] VITALS: BMI 33.3
[2023-01-11] MEDS ORDERED: LIDOCAINE HCL/PF 1% SDV 5ML VIAL ONE (07:10)
[2023-01-11] MEDS ORDERED: DEXAMETHASONE SOD PHOSPHATE 10 MG/1 ML VIAL ONE (07:11)
[2023-01-11 10:03] VITALS: RESP 18
[2023-01-11] MEDS ORDERED: IOHEXOL 180 MG/1 ML ML IJ ONE ×4 (10:36→10:38)
[2023-01-11] MEDS ORDERED: LIDOCAINE HCL 1% PRESERVATIVE FREE - 30ML VIAL IJ ONE ×2 (10:36)
[2023-01-11] MEDS ORDERED: DEXAMETHASONE SOD PHOSPHATE 10 MG/1 ML VIAL IVPUSH ONE ×2 (10:36→10:40)
[2023-01-11 12:05] VITALS: BP 150/59; PULSE 62; TEMP 97
== END 2023-01-11 12:06 | disposition home or self-care (01) ==
LOC: JASU-SURG 04:04
PROVIDERS: ATTEND Pain Medicine Pain Medicine
PROC: 3E0R3BZ Introduction of Anesthetic Agent into Spinal Canal, Percutaneous Approach (ICD-10-PCS; 2023-01-11)
PROC: 3E0R33Z Introduction of Anti-inflammatory into Spinal Canal, Percutaneous Approach (ICD-10-PCS; principal; 2023-01-11 11:00)
DX: M54.16 Radiculopathy, lumbar region (principal); M48.061 Spinal stenosis, lumbar region without neurogenic claudication
CPT/HCPCS: 76000-TC-FY; J1100

== ENCOUNTER 2023-02-15 04:17 | Day surgery (SDC) | payer OTHER, MEDICARE ==
[2023-02-13 10:57] VITALS: BMI 33.3
[2023-02-15] MEDS ORDERED: LIDOCAINE HCL/PF 1% SDV 5ML VIAL ONE (07:37)
[2023-02-15] MEDS ORDERED: BUPIVACAINE HCL/PF 0.75% 10 ML VIAL ONE (07:37)
[2023-02-15] MEDS ORDERED: LIDOCAINE 1% P/F 10 MG/ML VIAL INF ONE (14:35)
[2023-02-15] MEDS ORDERED: BUPIVACAINE HCL/PF 0.75% 10 ML VIAL NR ONE (14:36)
[2023-02-15] MEDS ORDERED: ACETAMINOPHEN 500 MG TABLET (FP) PO PRN (15:54)
[2023-02-15 16:26] VITALS: BP 129/72; PULSE 68; RESP 20; TEMP 96.6
== END 2023-02-15 16:00 | disposition home or self-care (01) ==
LOC: JASU-SURG 04:17
PROVIDERS: ATTEND Pain Medicine Pain Medicine
PROC: 3E0T3BZ Introduction of Anesthetic Agent into Peripheral Nerves and Plexi, Percutaneous Approach (ICD-10-PCS; principal; 2023-02-15 14:45)
DX: M47.816 Spondylosis without myelopathy or radiculopathy, lumbar region (principal)
CPT/HCPCS: 76000-TC-FY

== ENCOUNTER 2023-03-24 10:32 | Emergency (ER) | payer OTHER, MEDICARE ==
[2023-03-24 10:50] VITALS: BP 142/72; PULSE 63; RESP 18; TEMP 97.9; BMI 28.8
[2023-03-24] MEDS ORDERED: ACETAMINOPHEN 500 MG TABLET (FP) PO ONE (11:21)
[2023-03-24] MEDS ORDERED: LIDOCAINE 5% TOPICAL PATCH TP ONE (11:21)
[2023-03-24] MEDS ORDERED: LIDOCAINE 5% TOPICAL PATCH ONE (11:24)
[2023-03-24] MEDS ORDERED: ACETAMINOPHEN 500 MG TABLET (FP) ONE (11:24)
[2023-03-24] MEDS ORDERED: LIDOCAINE PATCH REMOVAL MC SCH (22:00)
== END 2023-03-24 12:14 | disposition home or self-care (01) ==
LOC: FER 10:32
DX: M54.50 Low back pain, unspecified (principal)
CPT/HCPCS: 72100-TC-FY; 99283-25

== ENCOUNTER 2023-04-30 04:21 | Day surgery (SDC) | payer OTHER, MEDICARE ==
[2023-04-26 17:45] VITALS: BMI 33.3
[~2023-04-30 04:21] MED LIST: BUPIVACAINE HCL/PF 0.75% 10 ML VIAL NR ONE; LIDOCAINE HCL 1% PRESERVATIVE FREE - 30ML VIAL IJ ONE
[2023-04-30] MEDS ORDERED: LIDOCAINE HCL/PF 1% SDV 5ML VIAL ONE (07:35)
[2023-04-30] MEDS ORDERED: BUPIVACAINE HCL/PF 0.75% 10 ML VIAL ONE (07:35)
[2023-04-30] MEDS ORDERED: ACETAMINOPHEN 500 MG TABLET (FP) PO PRN (08:29)
[2023-04-30] MEDS ORDERED: BUPIVACAINE HCL/PF 0.75% 10 ML VIAL NR ONE (12:07)
[2023-04-30] MEDS ORDERED: LIDOCAINE HCL 1% PRESERVATIVE FREE - 30ML VIAL IJ ONE (12:07)
[2023-04-30 13:22] VITALS: BP 144/61; PULSE 62; RESP 18; TEMP 97
== END 2023-04-30 13:23 | disposition home or self-care (01) ==
LOC: JASU-SURG 04:21
PROVIDERS: ATTEND Pain Medicine Pain Medicine
PROC: 3E0T3BZ Introduction of Anesthetic Agent into Peripheral Nerves and Plexi, Percutaneous Approach (ICD-10-PCS; principal; 2023-04-30 12:45)
DX: M47.816 Spondylosis without myelopathy or radiculopathy, lumbar region (principal)
CPT/HCPCS: 76000-TC-FY

== ENCOUNTER 2023-12-05 13:47 | Observation (INO) | payer OTHER, MEDICARE ==
[2023-12-05 15:59] LABS: BASO % 0.3 % (0-2.0); EOS % 1.5 % (0-4.5); HEMATOCRIT 37.8 % (32.4-45.2); HEMOGLOBIN 12.6 GM/dL (10.7-15.3); LYMPH % 26.2 % (8-40); MCH 30.9 pg (25.7-33.7); MCHC 33.2 g/dl (32.0-36.0); MEAN PLT VOLUME 7.2 fl (7.5-11.1); MONO % 10.2 % (3.8-10.2); NEUT % 61.8 % (42.8-82.8); PLATELET COUNT 202 10^3/uL (134-434); RBC 4.07 M/mm3 (3.60-5.2); WHITE BLOOD COUNT 5.8 K/mm3 (4.0-10.0)
[2023-12-05 16:16] LABS: POTASSIUM 4.5 mmol/L (3.5-5.1)
[2023-12-05 16:18] LABS: ALBUMIN 3.4 g/dl (3.4-5.0); BLOOD UREA NITROGEN 26.8 mg/dL (7-18); CALCIUM 9.3 mg/dL (8.5-10.1); INR 1.04 (0.83-1.09); MAGNESIUM 2.1 mg/dL (1.8-2.4); PROTHROMBIN TIME (PATIENT) 12.1 SEC (9.7-13.0)
[2023-12-05 16:20] LABS: ACTIVATED PTT 30.8 SECONDS (25.2-36.5)
[2023-12-05 16:23] LABS: BILIRUBIN,TOTAL 0.6 mg/dL (0.2-1); TOT PROT 6.6 g/dl (6.4-8.2)
[2023-12-05 17:22] LABS: EPI CELLS 2 /uL (0-25.1); HYALINE CASTS 0 /uL (0-3.1); URINE APPEARANCE CLEAR; URINE BACTERIA 5 /uL (0-1359); URINE BILIRUBIN NEGATIVE (NEGATIVE); URINE COLOR YELLOW; URINE GLUCOSE (UA) NEGATIVE (NEGATIVE); URINE KETONE NEGATIVE (NEGATIVE); URINE LEUK ESTERASE TRACE (NEGATIVE); URINE NITRITE NEGATIVE (NEGATIVE); URINE PROTEIN NEGATIVE (NEGATIVE); URINE RBC 7 /uL (0-23.9); URINE UROBILINOGEN 0.2 mg/dL (0.2-1.0); URINE WBC 5 /uL (0-25.8)
[2023-12-05] MEDS ORDERED: ASPIRIN 81 MG CHEWABLE TABLETS PO ONE (18:41)
[2023-12-05] MEDS ORDERED: ATORVASTATIN CA 80 MG TABLET (FP) PO ONE (18:41)
[2023-12-05] MEDS ORDERED: metoPROLOL SUCCINATE 25 MG TAB.SR.24H (FP) PO ONE ×2 (18:51→19:35)
[2023-12-05] MEDS ORDERED: LOSARTAN POTASSIUM 25 MG TABLET PO ONE (18:52)
[2023-12-05] MEDS ORDERED: FAMOTIDINE 20 MG/50 ML IVPB 20 MG/50 ML MG IVPB ONE ×2 (18:52→19:36)
[2023-12-05 19:27] LABS: N-TERMINAL BNP 650.9 pg/ml (5-450)
[2023-12-05] MEDS ORDERED: ATORVASTATIN CA 80 MG TABLET (FP) ONE (19:35)
[2023-12-05] MEDS ORDERED: LOSARTAN POTASSIUM 25 MG TABLET ONE (19:35)
[2023-12-05] MEDS ORDERED: ASPIRIN 81 MG CHEWABLE TABLETS ONE (19:35)
[2023-12-05] MEDS: ATORVASTATIN CA 40 MG TABLET (FP) PO SCH (22:49)
[2023-12-05] MEDS: FAMOTIDINE 20 MG TABLET PO SCH (22:49)
[2023-12-05] MEDS ORDERED: ENOXAPARIN NA (PORCINE) 80 MG/0.8 ML DISP.SYRIN SQ ONE (22:51)
[2023-12-05] MEDS: ENOXAPARIN NA (PORCINE) 80 MG/0.8 ML DISP.SYRIN SQ SCH (23:18)
[2023-12-06 00:22] VITALS: BMI 32.4
[2023-12-06] MEDS ORDERED: SIMETHICONE 80 MG TAB.CHEW (FP) PO ONE (06:30)
[2023-12-06 09:02] LABS: BASO % 0.3 % (0-2.0); EOS % 2.5 % (0-4.5); HEMATOCRIT 37.9 % (32.4-45.2); HEMOGLOBIN 12.4 GM/dL (10.7-15.3); LYMPH % 33.5 % (8-40); MCH 30.6 pg (25.7-33.7); MCHC 32.7 g/dl (32.0-36.0); MEAN CELL VOLUME 93.6 fl (80-96); MEAN PLT VOLUME 7.7 fl (7.5-11.1); MONO % 10.5 % (3.8-10.2); NEUT % 53.2 % (42.8-82.8); PLATELET COUNT 204 10^3/uL (134-434); RBC 4.06 M/mm3 (3.60-5.2); RDW 14.6 % (11.6-15.6); WHITE BLOOD COUNT 4.8 K/mm3 (4.0-10.0)
[2023-12-06 09:57] LABS: CALCIUM 8.9 mg/dL (8.5-10.1)
[2023-12-06 09:58] LABS: ALBUMIN 3.1 g/dl (3.4-5.0); BLOOD UREA NITROGEN 17.8 mg/dL (7-18); MAGNESIUM 2.1 mg/dL (1.8-2.4)
[2023-12-06 10:00] LABS: PHOSPHOROUS 3.1 mg/dL (2.5-4.9)
[2023-12-06] MEDS ORDERED: metoPROLOL SUCCINATE 25 MG TAB.SR.24H (FP) PO SCH (10:00)
[2023-12-06] MEDS ORDERED: METHENAMINE HIPPURATE 1 GM PO SCH (10:00)
[2023-12-06] MEDS ORDERED: CRANBERRY FRUIT EXTRACT 500 MG PO SCH (10:00)
[2023-12-06] MEDS ORDERED: ALPHA D GALACTOSIDASE 150 UNIT PO SCH (10:00)
[2023-12-06 10:01] LABS: CREATININE 0.7 mg/dL (0.55-1.3); TOT PROT 6.1 g/dl (6.4-8.2)
[2023-12-06 10:05] LABS: BILIRUBIN,TOTAL 0.7 mg/dL (0.2-1)
[2023-12-06] MEDS: CLOPIDOGREL BISULFATE 75 MG TABLET (FP) PO SCH (10:34)
[2023-12-06] MEDS: ENOXAPARIN NA (PORCINE) 80 MG/0.8 ML DISP.SYRIN SQ SCH ×2 (10:34→21:37)
[2023-12-06] MEDS: LOSARTAN POTASSIUM 25 MG TABLET PO SCH (10:34)
[2023-12-06] MEDS: FAMOTIDINE 20 MG TABLET PO SCH ×2 (10:34→21:37)
[2023-12-06] MEDS: ATORVASTATIN CA 40 MG TABLET (FP) PO SCH (21:36)
[2023-12-07 08:40] LABS: BASO % 0.3 % (0-2.0); EOS % 3.6 % (0-4.5); HEMATOCRIT 35.1 % (32.4-45.2); HEMOGLOBIN 11.8 GM/dL (10.7-15.3); LYMPH % 33.3 % (8-40); MCH 31.4 pg (25.7-33.7); MCHC 33.6 g/dl (32.0-36.0); MEAN CELL VOLUME 93.2 fl (80-96); MEAN PLT VOLUME 7.3 fl (7.5-11.1); MONO % 11.2 % (3.8-10.2); NEUT % 51.6 % (42.8-82.8); PLATELET COUNT 203 10^3/uL (134-434); RBC 3.76 M/mm3 (3.60-5.2); RDW 14.1 % (11.6-15.6); WHITE BLOOD COUNT 5.5 K/mm3 (4.0-10.0)
[2023-12-07 09:14] VITALS: RESP 18
[2023-12-07] MEDS: CLOPIDOGREL BISULFATE 75 MG TABLET (FP) PO SCH (09:15)
[2023-12-07] MEDS: LOSARTAN POTASSIUM 25 MG TABLET PO SCH (09:15)
[2023-12-07] MEDS: ASPIRIN COATED 81 MG TABLET.EC PO SCH (09:15)
[2023-12-07] MEDS: FAMOTIDINE 20 MG TABLET PO SCH ×2 (09:16→21:10)
[2023-12-07 09:24] LABS: CALCIUM 8.4 mg/dL (8.5-10.1)
[2023-12-07 09:25] LABS: ALBUMIN 2.8 g/dl (3.4-5.0); BLOOD UREA NITROGEN 17.9 mg/dL (7-18)
[2023-12-07 09:28] LABS: CREATININE 0.8 mg/dL (0.55-1.3)
[2023-12-07 09:30] LABS: BILIRUBIN,TOTAL 0.7 mg/dL (0.2-1); TOT PROT 5.6 g/dl (6.4-8.2)
[2023-12-07] MEDS: ENOXAPARIN NA (PORCINE) 80 MG/0.8 ML DISP.SYRIN SQ SCH (09:40)
[2023-12-07] MEDS ORDERED: METOPROLOL TARTRATE 25 MG TABLET (FP) PO SCH (10:00)
[2023-12-07] MEDS ORDERED: ENOXAPARIN NA (PORCINE) 80 MG/0.8 ML DISP.SYRIN SQ SCH (16:01)
[2023-12-07] MEDS: METOPROLOL TARTRATE 25 MG TABLET (FP) PO SCH (21:10)
[2023-12-07] MEDS: ATORVASTATIN CA 40 MG TABLET (FP) PO SCH (21:10)
[2023-12-07] MEDS ORDERED: ENOXAPARIN NA (PORCINE) 80 MG/0.8 ML DISP.SYRIN SQ ONE (22:00)
[2023-12-08 08:22] LABS: BASO % 0.5 % (0-2.0); EOS % 3.6 % (0-4.5); HEMATOCRIT 38.2 % (32.4-45.2); HEMOGLOBIN 12.6 GM/dL (10.7-15.3); LYMPH % 34.1 % (8-40); MCH 30.7 pg (25.7-33.7); MEAN CELL VOLUME 93.2 fl (80-96); MEAN PLT VOLUME 7.5 fl (7.5-11.1); MONO % 11.1 % (3.8-10.2); NEUT % 50.7 % (42.8-82.8); PLATELET COUNT 208 10^3/uL (134-434); RDW 14.6 % (11.6-15.6); WHITE BLOOD COUNT 5.6 K/mm3 (4.0-10.0)
[2023-12-08 08:36] LABS: POTASSIUM 4.3 mmol/L (3.5-5.1)
[2023-12-08 08:43] LABS: ALBUMIN 2.8 g/dl (3.4-5.0); CALCIUM 8.7 mg/dL (8.5-10.1)
[2023-12-08 08:44] LABS: BLOOD UREA NITROGEN 19.6 mg/dL (7-18)
[2023-12-08 08:46] LABS: CREATININE 0.8 mg/dL (0.55-1.3); PHOSPHOROUS 3.8 mg/dL (2.5-4.9)
[2023-12-08 08:48] LABS: BILIRUBIN,TOTAL 0.4 mg/dL (0.2-1); TOT PROT 5.8 g/dl (6.4-8.2)
[2023-12-08] MEDS: LOSARTAN POTASSIUM 25 MG TABLET PO SCH (09:33)
[2023-12-08] MEDS: CLOPIDOGREL BISULFATE 75 MG TABLET (FP) PO SCH (09:33)
[2023-12-08] MEDS: ASPIRIN COATED 81 MG TABLET.EC PO SCH (09:33)
[2023-12-08] MEDS: METOPROLOL TARTRATE 25 MG TABLET (FP) PO SCH (09:33)
[2023-12-08] MEDS: FAMOTIDINE 20 MG TABLET PO SCH ×2 (09:33→21:01)
[2023-12-08] MEDS ORDERED: ALPRAZolam 0.25 MG TABLET PO PRN (15:10)
[2023-12-08] MEDS: ATORVASTATIN CA 40 MG TABLET (FP) PO SCH (21:01)
[2023-12-09 09:02] LABS: POTASSIUM 4.5 mmol/L (3.5-5.1)
[2023-12-09 09:05] LABS: CALCIUM 8.7 mg/dL (8.5-10.1)
[2023-12-09 09:06] LABS: ALBUMIN 2.9 g/dl (3.4-5.0); BLOOD UREA NITROGEN 19.7 mg/dL (7-18)
[2023-12-09 09:09] LABS: CREATININE 0.8 mg/dL (0.55-1.3)
[2023-12-09 09:10] LABS: BILIRUBIN,TOTAL 0.5 mg/dL (0.2-1); TOT PROT 5.8 g/dl (6.4-8.2)
[2023-12-09] MEDS ORDERED: REGADENOSON 0.4 MG/5 ML PRE-FILLED SYRINGE IVPUSH ONE ×2 (09:40→10:00)
[2023-12-09] MEDS: ASPIRIN COATED 81 MG TABLET.EC PO SCH (13:04)
[2023-12-09] MEDS: LOSARTAN POTASSIUM 25 MG TABLET PO SCH (13:04)
[2023-12-09] MEDS: CLOPIDOGREL BISULFATE 75 MG TABLET (FP) PO SCH (13:05)
[2023-12-09] MEDS: FAMOTIDINE 20 MG TABLET PO SCH (13:05)
[2023-12-09 14:25] VITALS: BP 127/72; PULSE 57; TEMP 97.5
== END 2023-12-09 19:32 | disposition home or self-care (01) ==
LOC: JER 13:47 → JERBED 17:08 → J4S 23:28
PROVIDERS: ADMIT Internal Medicine; ATTEND Internal Medicine
PROC: 3E023GC Introduction of Other Therapeutic Substance into Muscle, Percutaneous Approach (ICD-10-PCS; principal; 2023-12-05)
PROC: 3E033GC Introduction of Other Therapeutic Substance into Peripheral Vein, Percutaneous Approach (ICD-10-PCS; 2023-12-05)
DX: R00.2 Palpitations (principal); R07.9 Chest pain, unspecified; Z85.42 Personal history of malignant neoplasm of other parts of uterus; R79.9 Abnormal finding of blood chemistry, unspecified; Z85.118 Personal history of other malignant neoplasm of bronchus and lung; I11.0 Hypertensive heart disease with heart failure; I50.30 Unspecified diastolic (congestive) heart failure; Z87.891 Personal history of nicotine dependence; Z91.013 Allergy to seafood; Z88.8 Allergy status to other drugs, medicaments and biological substances
CPT/HCPCS: 0241U-QW; 36415; 71045-TC-FY; 78452-TC; 80053; 80061; 81003; 82550; 83036; 83735; 83880; 84100; 84439; 84443; 84484; 85025; 85610; 85730; 93005; 93010; 93017; 93306-TC; 96365; 96372; 96375; 97116-GP; 97161-GP; 99285-25; A9502; G0378; J2785

== ENCOUNTER 2024-01-25 11:50 | Inpatient (IN) | payer OTHER, MEDICARE ==
[2024-01-25 12:00] VITALS: BMI 32.9
[2024-01-25] MEDS ORDERED: KETOROLAC TROMETHAMINE 15 MG/ML VIAL ONE (15:04)
[2024-01-25] MEDS ORDERED: LIDOCAINE 4% PATCH TP ONE (15:04)
[2024-01-25] MEDS: KETOROLAC TROMETHAMINE 15 MG/ML VIAL IM ONE (15:10)
[2024-01-25] MEDS: LIDOCAINE 5% TOPICAL PATCH TP ONE (15:10)
[2024-01-25 17:23] LABS: BASO % 0.7 % (0-2.0); EOS % 1.5 % (0-4.5); HEMATOCRIT 42.7 % (32.4-45.2); HEMOGLOBIN 13.9 GM/dL (10.7-15.3); LYMPH % 30.3 % (8-40); MCH 30.5 pg (25.7-33.7); MCHC 32.5 g/dl (32.0-36.0); MEAN CELL VOLUME 93.8 fl (80-96); MEAN PLT VOLUME 7.3 fl (7.5-11.1); MONO % 10.7 % (3.8-10.2); NEUT % 56.8 % (42.8-82.8); PLATELET COUNT 239 10^3/uL (134-434); RBC 4.55 M/mm3 (3.60-5.2); RDW 14.5 % (11.6-15.6); WHITE BLOOD COUNT 5.7 K/mm3 (4.0-10.0)
[2024-01-25 18:03] LABS: POTASSIUM 4.9 mmol/L (3.5-5.1)
[2024-01-25 18:05] LABS: ALBUMIN 3.6 g/dl (3.4-5.0); CALCIUM 9.6 mg/dL (8.5-10.1)
[2024-01-25 18:06] LABS: BLOOD UREA NITROGEN 28.3 mg/dL (7-18)
[2024-01-25 18:08] LABS: CREATININE 0.9 mg/dL (0.55-1.3)
[2024-01-25 18:10] LABS: BILIRUBIN,TOTAL 0.7 mg/dL (0.2-1); TOT PROT 7.2 g/dl (6.4-8.2)
[2024-01-25] MEDS ORDERED: METOPROLOL TARTRATE 5 MG/5 ML VIAL IVPUSH PRN ×2 (18:12→18:38)
[2024-01-25] MEDS ORDERED: METOPROLOL TARTRATE 25 MG TABLET (FP) ONE (22:21)
[2024-01-25] MEDS ORDERED: APIXABAN 5 MG TABLET ONE (22:22)
[2024-01-25] MEDS ORDERED: FAMOTIDINE 20 MG TABLET ONE (22:22)
[2024-01-25] MEDS: LIDOCAINE PATCH REMOVAL MC ONE (22:33)
[2024-01-25] MEDS: FAMOTIDINE 20 MG TABLET PO SCH (22:33)
[2024-01-25] MEDS: APIXABAN 5 MG TABLET PO SCH (22:33)
[2024-01-25] MEDS: METOPROLOL TARTRATE 25 MG TABLET (FP) PO SCH (22:33)
[2024-01-26 08:25] LABS: N-TERMINAL BNP 2834.8 pg/ml (5-450)
[2024-01-26] MEDS ORDERED: CLOPIDOGREL BISULFATE 75 MG TABLET (FP) PO SCH (10:00)
[2024-01-26] MEDS ORDERED: METOPROLOL TARTRATE 25 MG TABLET (FP) ONE ×2 (11:19→22:14)
[2024-01-26] MEDS ORDERED: LOSARTAN POTASSIUM 25 MG TABLET ONE (11:20)
[2024-01-26] MEDS ORDERED: APIXABAN 5 MG TABLET ONE ×2 (11:20→22:14)
[2024-01-26] MEDS ORDERED: FAMOTIDINE 20 MG TABLET ONE ×2 (11:20→22:15)
[2024-01-26] MEDS: LOSARTAN POTASSIUM 25 MG TABLET PO SCH (11:28)
[2024-01-26] MEDS ORDERED: FUROSEMIDE 20 MG TABLET (FP) ONE (15:02)
[2024-01-26] MEDS: FUROSEMIDE 20 MG TABLET (FP) PO SCH (15:28)
[2024-01-26] MEDS ORDERED: MAG HYDROX/AL HYDROX/SIMETH -MYLANTA- ORAL SUSPENSION PO SCH (18:00)
[2024-01-26] MEDS ORDERED: MAG HYDROX/AL HYDROX/SIMETH 30 ML UNIT-DOSE CUP ONE ×2 (18:48→22:15)
[2024-01-26] MEDS: MAG HYDROX/AL HYDROX/SIMETH 30 ML UNIT-DOSE CUP PO SCH (18:50)
[2024-01-26] MEDS ORDERED: LIDOCAINE 4% PATCH TP ONE (18:51)
[2024-01-26] MEDS: LIDOCAINE 4% PATCH TP SCH (18:56)
[2024-01-26] MEDS: LIDOCAINE PATCH REMOVAL MC SCH (22:30)
[2024-01-27 08:14] LABS: POTASSIUM 4.1 mmol/L (3.5-5.1)
[2024-01-27 08:24] LABS: CALCIUM 9.2 mg/dL (8.5-10.1)
[2024-01-27 08:25] LABS: BLOOD UREA NITROGEN 22.9 mg/dL (7-18); MAGNESIUM 2.4 mg/dL (1.8-2.4)
[2024-01-27 08:28] LABS: CREATININE 0.8 mg/dL (0.55-1.3)
[2024-01-27 08:32] LABS: BASO % 0.3 % (0-2.0); EOS % 3.1 % (0-4.5); HEMATOCRIT 35.4 % (32.4-45.2); HEMOGLOBIN 11.7 GM/dL (10.7-15.3); LYMPH % 35.8 % (8-40); MCH 30.7 pg (25.7-33.7); MEAN PLT VOLUME 7.4 fl (7.5-11.1); MONO % 12.5 % (3.8-10.2); NEUT % 48.3 % (42.8-82.8); PLATELET COUNT 215 10^3/uL (134-434); RBC 3.81 M/mm3 (3.60-5.2); WHITE BLOOD COUNT 5.5 K/mm3 (4.0-10.0)
[2024-01-27] MEDS: KETOROLAC TROMETHAMINE 15 MG/ML VIAL IM ONE (18:09)
[2024-01-27] MEDS: GABAPENTIN 100 MG CAPSULE PO SCH (22:27)
[2024-01-29] MEDS ORDERED: LIDOCAINE HCL 1%, 10 MG/ML (20ML VIAL) ONE (12:53)
[2024-01-29] MEDS ORDERED: HEPARIN NA (PORCINE) 5,000 UNITS/ML 1ML VIAL ONE ×2 (12:54→16:11)
[2024-01-29] MEDS ORDERED: FAMOTIDINE 20 MG/50 ML IVPB 20 MG/50 ML MG IVPB ONE (14:53)
[2024-01-29] MEDS ORDERED: MIDAZOLAM HCL 2 MG/2 ML SINGLE DOSE VIAL ONE (14:55)
[2024-01-29] MEDS ORDERED: PROPOFOL 20 ML ONE (14:55)
[2024-01-29] MEDS ORDERED: FENTANYL CITRATE/PF 50 MCG/ML VIAL ONE ×3 (14:55→17:10)
[2024-01-29] MEDS ORDERED: METOCLOPRAMIDE HCL INJECTION 10 MG/2 ML VIAL ONE (14:55)
[2024-01-29] MEDS ORDERED: ONDANSETRON 4 MG/2 ML VIAL IVPUSH PRN ×2 (15:01→16:53)
[2024-01-29] MEDS ORDERED: oxyCODONE HCL 5 MG TABLET PO PRN ×2 (15:01→16:53)
[2024-01-29] MEDS ORDERED: ceFAZolin SODIUM 1 GM VIAL ONE (15:51)
[2024-01-29] MEDS: ceFAZolin SODIUM 1 GM VIAL IVPB ONE (15:51)
[2024-01-29] MEDS ORDERED: LIDOCAINE HCL 2% 100 MG/5 ML DISP.SYRIN ONE (15:53)
[2024-01-29] MEDS: LIDOCAINE HCL 1%, 10 MG/ML (20ML VIAL) NR ONE ×3 (15:56)
[2024-01-29] MEDS: HEPARIN NA (PORCINE) 5,000 UNITS/ML 1ML VIAL SQ ONE ×2 (16:07)
[2024-01-29] MEDS ORDERED: METOPROLOL TARTRATE 5 MG/5 ML VIAL IVPUSH PRN (16:53)
[2024-01-29] MEDS: LACTATED RINGERS SOLUTION 1,000 ML IV SCH ×2 (16:55→19:26)
[2024-01-29] MEDS: APIXABAN 5 MG TABLET PO SCH (17:20)
[2024-01-29] MEDS: APIXABAN 5 MG TABLET PO ONE (17:20)
[2024-01-29] MEDS: MAG HYDROX/AL HYDROX/SIMETH 30 ML UNIT-DOSE CUP PO SCH (19:32)
[2024-01-29] MEDS: LIDOCAINE PATCH REMOVAL MC SCH (21:00)
[2024-01-29] MEDS: METOPROLOL TARTRATE 25 MG TABLET (FP) PO SCH (21:01)
[2024-01-29] MEDS: GABAPENTIN 100 MG CAPSULE PO SCH (21:05)
[2024-01-29] MEDS: FAMOTIDINE 20 MG TABLET PO SCH (21:05)
[2024-01-29] MEDS ORDERED: APIXABAN 5 MG TABLET PO SCH (22:00)
[2024-01-29 22:51] VITALS: RESP 18
[2024-01-30] MEDS: FUROSEMIDE 20 MG TABLET (FP) PO SCH (05:55)
[2024-01-30 07:39] LABS: BASO % 0.4 % (0-2.0); EOS % 3.5 % (0-4.5); HEMATOCRIT 37.5 % (32.4-45.2); HEMOGLOBIN 12.4 GM/dL (10.7-15.3); LYMPH % 27.5 % (8-40); MCH 30.6 pg (25.7-33.7); MCHC 33.1 g/dl (32.0-36.0); MEAN CELL VOLUME 92.4 fl (80-96); MEAN PLT VOLUME 7.6 fl (7.5-11.1); MONO % 11.8 % (3.8-10.2); NEUT % 56.8 % (42.8-82.8); PLATELET COUNT 204 10^3/uL (134-434); RBC 4.06 M/mm3 (3.60-5.2); RDW 13.9 % (11.6-15.6); WHITE BLOOD COUNT 5.3 K/mm3 (4.0-10.0)
[2024-01-30 08:03] LABS: POTASSIUM 4.8 mmol/L (3.5-5.1)
[2024-01-30 08:09] LABS: MAGNESIUM 2.2 mg/dL (1.8-2.4)
[2024-01-30 08:11] LABS: CREATININE 0.9 mg/dL (0.55-1.3); PHOSPHOROUS 4.2 mg/dL (2.5-4.9)
[2024-01-30 08:13] LABS: BILIRUBIN,TOTAL 0.7 mg/dL (0.2-1); TOT PROT 6.1 g/dl (6.4-8.2)
[2024-01-30 08:14] LABS: BLOOD UREA NITROGEN 24.9 mg/dL (7-18)
[2024-01-30] MEDS: LOSARTAN POTASSIUM 25 MG TABLET PO SCH (11:03)
[2024-01-30] MEDS: LIDOCAINE 4% PATCH TP SCH (14:11)
[2024-01-30 14:54] VITALS: BP 94/62; PULSE 75; TEMP 97.6
== END 2024-01-30 15:28 | disposition home or self-care (01) | DRG 271 ==
LOC: JER 11:50 → JERBED 16:28 → J4S 01-27 01:35 → OBSVTOIN 01-28 11:45
PROVIDERS: ADMIT Internal Medicine; ATTEND Internal Medicine
PROC: 04CM3ZZ Extirpation of Matter from Right Popliteal Artery, Percutaneous Approach (ICD-10-PCS; 2024-01-29)
PROC: 047M3Z1 Dilation of Right Popliteal Artery using Drug-Coated Balloon, Percutaneous Approach (ICD-10-PCS; 2024-01-29)
PROC: B40DYZZ Plain Radiography of Aorta and Bilateral Lower Extremity Arteries using Other Contrast (ICD-10-PCS; 2024-01-29)
PROC: 04CM3ZZ Extirpation of Matter from Right Popliteal Artery, Percutaneous Approach (ICD-10-PCS; principal; 2024-01-29 15:30)
DX: I74.3 Embolism and thrombosis of arteries of the lower extremities (principal); I50.32 Chronic diastolic (congestive) heart failure; G89.29 Other chronic pain; K21.9 Gastro-esophageal reflux disease without esophagitis; I11.0 Hypertensive heart disease with heart failure; I48.91 Unspecified atrial fibrillation; M54.41 Lumbago with sciatica, right side; R77.8 Other specified abnormalities of plasma proteins; M51.34 Other intervertebral disc degeneration, thoracic region; M51.37 Other intervertebral disc degeneration, lumbosacral region; Z85.42 Personal history of malignant neoplasm of other parts of uterus; Z85.118 Personal history of other malignant neoplasm of bronchus and lung
CPT/HCPCS: 36415; 76000-TC-FY; 80048; 80053; 80061; 83036; 83735; 83880; 84100; 84439; 84443; 84484; 85025; 86850; 86900; 86901; 93005; 93010; 93926-TC; 93970-TC; 94760; 97116-GP; 97161-GP; 99285-25; C1760; C1897; G0378; J1644

== ENCOUNTER 2024-09-09 12:25 | Emergency (ER) | payer OTHER, MEDICARE ==
[2024-09-09 12:45] VITALS: BP 132/76; PULSE 67; RESP 18; TEMP 97.3; BMI 32.4
== END 2024-09-09 15:43 | disposition home or self-care (01) ==
LOC: FER 12:25
DX: R05.9 Cough, unspecified (principal); R09.81 Nasal congestion; M54.6 Pain in thoracic spine; Z20.822 Contact with and (suspected) exposure to COVID-19
CPT/HCPCS: 0241U-QW; 71046-TC-FY; 93005; 99285-25